=== PATIENT | female | born 1965 | race African-American/Black ===

== ENCOUNTER 2020-08-04 11:52 | Emergency (ER) | payer OTHER ==
[2020-08-04 11:58] VITALS: BP 164/82; TEMP 98; BMI 30.7
[2020-08-04] MEDS ORDERED: KETOROLAC TROMETHAMINE 60 MG/2 ML VIAL IM ONE (12:51)
[2020-08-04 13:47] VITALS: PULSE 82
== END 2020-08-04 14:06 | disposition home or self-care (01) ==
LOC: JERFT 11:52
PROC: 3E0233Z Introduction of Anti-inflammatory into Muscle, Percutaneous Approach (ICD-10-PCS; principal; 2020-08-04)
DX: M54.5 Low back pain (principal)
CPT/HCPCS: 72100-TC-FY; 73562-TC-LT-FY; 73562-TC-RT-FY; 99284-25

== ENCOUNTER 2021-06-24 16:37 | Inpatient (IN) | payer BC, OTHER ==
[2021-06-24] MEDS ORDERED: methylPREDNISolone NA SUCC 125 MG/2 ML VIAL IVPUSH ONE (18:01)
[2021-06-24] MEDS ORDERED: methylPREDNISolone NA SUCC 125 MG/2 ML VIAL ONE (18:13)
[2021-06-24] MEDS ORDERED: SODIUM CHLORIDE 0.9% 1000 ML INFUS.BAG IV ONE (18:14)
[2021-06-24] MEDS ORDERED: ACETAMINOPHEN 1000 MG/100 ML BAG IVPB ONE (18:14)
[2021-06-24] MEDS ORDERED: SODIUM CHLORIDE 0.9% 500 ML INFUS.BAG IV ONE (18:16)
[2021-06-24] MEDS ORDERED: ACETAMINOPHEN INJECTION 100 ML IVPB ONE (18:44)
[2021-06-24] MEDS ORDERED: ALBUTEROL SO4 2.5/IPRATROPIUM 0.5 INH SOL 3 ML VIAL.NEB. NEB ONE (19:27)
[2021-06-24] MEDS: ALBUTEROL SO4 2.5/IPRATROPIUM 0.5 INH SOL 3 ML VIAL.NEB. NEB SCH ×4 (19:30→22:19)
[2021-06-24 19:36] LABS: BASO % 0.8 % (0-2.0); EOS % 2.7 % (0-4.5); HEMATOCRIT 38.1 % (32.4-45.2); LYMPH % 16.9 % (8-40); MCH 31.4 pg (25.7-33.7); MEAN CELL VOLUME 92.3 fl (80-96); MEAN PLT VOLUME 8.6 fl (7.5-11.1); MONO % 11.5 % (3.8-10.2); NEUT % 68.1 % (42.8-82.8); PLATELET COUNT 336 10^3/uL (134-434); RBC 4.13 M/mm3 (3.60-5.2); RDW 14.2 % (11.6-15.6); WHITE BLOOD COUNT 8.8 K/mm3 (4.0-10.0)
[2021-06-24 19:56] LABS: ALBUMIN 3.7 g/dl (3.4-5.0); BLOOD UREA NITROGEN 22.3 mg/dL (7-18); CALCIUM 9.3 mg/dL (8.5-10.1)
[2021-06-24 20:01] LABS: BILIRUBIN,TOTAL 0.5 mg/dL (0.2-1); TOT PROT 7.1 g/dl (6.4-8.2)
[2021-06-24 21:14] LABS: N-TERMINAL BNP 243.1 pg/ml (5-125)
[2021-06-25 01:09] LABS: URINE APPEARANCE CLEAR; URINE BILIRUBIN NEGATIVE (NEGATIVE); URINE COLOR YELLOW; URINE GLUCOSE (UA) NEGATIVE (NEGATIVE); URINE KETONE NEGATIVE (NEGATIVE); URINE LEUK ESTERASE NEGATIVE (NEGATIVE); URINE NITRITE NEGATIVE (NEGATIVE); URINE PROTEIN NEGATIVE (NEGATIVE); URINE UROBILINOGEN 0.2 mg/dL (0.2-1.0)
[2021-06-25] MEDS ORDERED: methylPREDNISolone NA SUCC 40 MG/1 ML VIAL ONE (02:28)
[2021-06-25] MEDS: methylPREDNISolone NA SUCC 40 MG/1 ML VIAL IVPUSH SCH ×3 (02:43→17:25)
[2021-06-25 04:15] VITALS: BMI 28.0
[2021-06-25] MEDS: LISINOPRIL 10 MG TABLET PO SCH (06:41)
[2021-06-25 07:26] LABS: HEMATOCRIT 38.7 % (32.4-45.2); HEMOGLOBIN 13.4 GM/dL (10.7-15.3); MCH 31.9 pg (25.7-33.7); MCHC 34.8 g/dl (32.0-36.0); MEAN CELL VOLUME 91.7 fl (80-96); MEAN PLT VOLUME 8.1 fl (7.5-11.1); PLATELET COUNT 324 10^3/uL (134-434); RBC 4.21 M/mm3 (3.60-5.2); WHITE BLOOD COUNT 6.9 K/mm3 (4.0-10.0)
[2021-06-25 07:44] LABS: CALCIUM 9.4 mg/dL (8.5-10.1)
[2021-06-25 07:45] LABS: ALBUMIN 3.6 g/dl (3.4-5.0); MAGNESIUM 2.1 mg/dL (1.8-2.4)
[2021-06-25 07:48] LABS: CREATININE 0.9 mg/dL (0.55-1.3); PHOSPHOROUS 2.2 mg/dL (2.5-4.9)
[2021-06-25 07:49] LABS: BILIRUBIN,TOTAL 0.7 mg/dL (0.2-1)
[2021-06-25 07:50] LABS: TOT PROT 7.1 g/dl (6.4-8.2)
[2021-06-25 09:30] LABS: ANISOCYTOSIS 0; MACROCYTOSIS 0
[2021-06-25] MEDS ORDERED: DEXTROSE 5%-WATER - 50 ML IVPB ONE (09:45)
[2021-06-25] MEDS ORDERED: cefTRIAXone SODIUM 1 GM VIAL ONE (09:45)
[2021-06-25] MEDS: ENOXAPARIN NA (PORCINE) 40 MG/0.4 ML DISP.SYRIN SQ SCH (09:51)
[2021-06-25] MEDS: CEFTRIAXONE 1 GM in DEXTROSE 5%-WATER - 50 ML IVPB SCH (09:54)
[2021-06-25] MEDS: AZITHROMYCIN IVPB 250 MG/125 ML BAG IVPB SCH (09:54)
[2021-06-25] MEDS ORDERED: HYDROCHLOROTHIAZIDE 12.5 MG CAPSULE (FP) PO SCH (10:00)
[2021-06-25] MEDS ORDERED: PATIENT'S OWN MEDICATION (NON-FORMULARY) (Lisinopril/Hydrochlorothiazide [Lisinopril-Hctz PO SCH (10:00)
[2021-06-26] MEDS: methylPREDNISolone NA SUCC 40 MG/1 ML VIAL IVPUSH SCH ×2 (01:38→09:47)
[2021-06-26] MEDS: ALBUTEROL SO4 2.5/IPRATROPIUM 0.5 INH SOL 3 ML VIAL.NEB. NEB PRN (07:35)
[2021-06-26 07:38] LABS: ALBUMIN 3.6 g/dl (3.4-5.0); BLOOD UREA NITROGEN 23.3 mg/dL (7-18); CALCIUM 9.9 mg/dL (8.5-10.1); MAGNESIUM 2.5 mg/dL (1.8-2.4)
[2021-06-26 07:40] LABS: CREATININE 0.9 mg/dL (0.55-1.3)
[2021-06-26 07:41] LABS: HEMATOCRIT 39.1 % (32.4-45.2); HEMOGLOBIN 13.1 GM/dL (10.7-15.3); MCH 30.9 pg (25.7-33.7); MCHC 33.5 g/dl (32.0-36.0); MEAN CELL VOLUME 92.4 fl (80-96); MEAN PLT VOLUME 8.7 fl (7.5-11.1); PLATELET COUNT 379 10^3/uL (134-434); RBC 4.23 M/mm3 (3.60-5.2); RDW 13.9 % (11.6-15.6); WHITE BLOOD COUNT 16.7 K/mm3 (4.0-10.0)
[2021-06-26 07:42] LABS: BILIRUBIN,TOTAL 0.5 mg/dL (0.2-1)
[2021-06-26 09:15] LABS: ANISOCYTOSIS 0; MACROCYTOSIS 1+
[2021-06-26] MEDS ORDERED: DEXTROSE 5%-WATER - 50 ML IVPB ONE (09:19)
[2021-06-26] MEDS ORDERED: cefTRIAXone SODIUM 1 GM VIAL ONE (09:19)
[2021-06-26] MEDS: LISINOPRIL 10 MG TABLET PO SCH (09:47)
[2021-06-26] MEDS: CEFTRIAXONE 1 GM in DEXTROSE 5%-WATER - 50 ML IVPB SCH (09:47)
[2021-06-26 10:14] LABS: INR 1.2 (0.83-1.09); PROTHROMBIN TIME (PATIENT) 13.8 SEC (9.7-13.0)
[2021-06-26] MEDS ORDERED: LABETALOL HCL 5 MG/1 ML (100MG/20 ML VIAL) IVPUSH ONE ×2 (12:50→13:08)
[2021-06-26] MEDS ORDERED: SODIUM CHLORIDE 500 ML IV SCH (14:00)
[2021-06-26] MEDS: AZITHROMYCIN IVPB 250 MG/125 ML BAG IVPB SCH (14:17)
[2021-06-26] MEDS ORDERED: ACETAMINOPHEN 325 MG TABLET (FP) PO ONE (21:34)
[2021-06-26] MEDS ORDERED: methylPREDNISolone NA SUCC 40 MG/1 ML VIAL IVPUSH SCH (22:00)
[2021-06-27] MEDS: ALBUTEROL SO4 2.5/IPRATROPIUM 0.5 INH SOL 3 ML VIAL.NEB. NEB PRN (07:27)
[2021-06-27] MEDS ORDERED: ACETAMINOPHEN 1000 MG/100 ML BAG IVPB PRN (07:29)
[2021-06-27 07:56] LABS: BASO % 0.1 % (0-2.0); HEMATOCRIT 37.3 % (32.4-45.2); HEMOGLOBIN 12.6 GM/dL (10.7-15.3); LYMPH % 6.6 % (8-40); MCH 31.2 pg (25.7-33.7); MCHC 33.7 g/dl (32.0-36.0); MEAN CELL VOLUME 92.7 fl (80-96); MEAN PLT VOLUME 8.4 fl (7.5-11.1); MONO % 3.9 % (3.8-10.2); NEUT % 89.4 % (42.8-82.8); PLATELET COUNT 340 10^3/uL (134-434); RBC 4.03 M/mm3 (3.60-5.2); RDW 14.4 % (11.6-15.6); WHITE BLOOD COUNT 13.1 K/mm3 (4.0-10.0)
[2021-06-27 08:08] LABS: BLOOD UREA NITROGEN 31.2 mg/dL (7-18); CALCIUM 9.6 mg/dL (8.5-10.1)
[2021-06-27 08:09] LABS: ALBUMIN 3.6 g/dl (3.4-5.0); MAGNESIUM 2.6 mg/dL (1.8-2.4)
[2021-06-27 08:12] LABS: BILIRUBIN,TOTAL 0.4 mg/dL (0.2-1); TOT PROT 6.6 g/dl (6.4-8.2)
[2021-06-27 08:15] LABS: CREATININE 0.9 mg/dL (0.55-1.3)
[2021-06-27] MEDS ORDERED: cefTRIAXone SODIUM 1 GM VIAL ONE (09:28)
[2021-06-27] MEDS ORDERED: DEXTROSE 5%-WATER - 50 ML IVPB ONE (09:28)
[2021-06-27] MEDS ORDERED: methylPREDNISolone NA SUCC 40 MG/1 ML VIAL IVPUSH SCH (10:00)
[2021-06-27] MEDS: CEFTRIAXONE 1 GM in DEXTROSE 5%-WATER - 50 ML IVPB SCH (10:02)
[2021-06-27] MEDS: LISINOPRIL 10 MG TABLET PO SCH (10:03)
[2021-06-27] MEDS: AZITHROMYCIN IVPB 250 MG/125 ML BAG IVPB SCH (12:06)
[2021-06-28] MEDS ORDERED: ACETAMINOPHEN 325 MG TABLET (FP) PO ONE (01:22)
[2021-06-28 06:57] LABS: BASO % 0.1 % (0-2.0); EOS % 0.2 % (0-4.5); HEMATOCRIT 36.5 % (32.4-45.2); HEMOGLOBIN 12.6 GM/dL (10.7-15.3); LYMPH % 26.2 % (8-40); MCH 31.8 pg (25.7-33.7); MCHC 34.4 g/dl (32.0-36.0); MEAN CELL VOLUME 92.4 fl (80-96); MEAN PLT VOLUME 8.1 fl (7.5-11.1); MONO % 13.6 % (3.8-10.2); NEUT % 59.9 % (42.8-82.8); PLATELET COUNT 306 10^3/uL (134-434); RBC 3.95 M/mm3 (3.60-5.2); WHITE BLOOD COUNT 8.9 K/mm3 (4.0-10.0)
[2021-06-28 07:10] LABS: CALCIUM 8.8 mg/dL (8.5-10.1)
[2021-06-28 07:12] LABS: ALBUMIN 2.9 g/dl (3.4-5.0); BLOOD UREA NITROGEN 27.5 mg/dL (7-18); MAGNESIUM 2.3 mg/dL (1.8-2.4)
[2021-06-28 07:14] LABS: CREATININE 0.8 mg/dL (0.55-1.3)
[2021-06-28 07:15] LABS: TOT PROT 5.9 g/dl (6.4-8.2)
[2021-06-28 07:16] LABS: BILIRUBIN,TOTAL 0.5 mg/dL (0.2-1)
[2021-06-28] MEDS: LISINOPRIL 10 MG TABLET PO SCH (09:50)
[2021-06-28] MEDS: ENOXAPARIN NA (PORCINE) 40 MG/0.4 ML DISP.SYRIN SQ SCH (09:53)
[2021-06-28] MEDS ORDERED: methylPREDNISolone NA SUCC 40 MG/1 ML VIAL IVPUSH SCH (10:00)
[2021-06-28] MEDS ORDERED: predniSONE 20 MG TABLET (UD) PO SCH (10:00)
[2021-06-28 10:52] VITALS: BP 115/80; PULSE 88; TEMP 98.2
== END 2021-06-28 16:35 | disposition home or self-care (01) | DRG 180 ==
LOC: JER 16:37 → JERBED 22:17 → J4W 06-25 04:10
PROVIDERS: ADMIT Hospitalist; ATTEND Nurse Practitioner Acute Care
PROC: 0BBF3ZX Excision of Right Lower Lung Lobe, Percutaneous Approach, Diagnostic (ICD-10-PCS; principal; 2021-06-26)
DX: C34.31 Malignant neoplasm of lower lobe, right bronchus or lung (principal); J96.01 Acute respiratory failure with hypoxia; J18.9 Pneumonia, unspecified organism; J44.1 Chronic obstructive pulmonary disease with (acute) exacerbation; J94.8 Other specified pleural conditions; J95.811 Postprocedural pneumothorax; K76.89 Other specified diseases of liver; K80.20 Calculus of gallbladder without cholecystitis without obstruction; I10 Essential (primary) hypertension; F41.9 Anxiety disorder, unspecified; Z86.16 Personal history of COVID-19; Z85.3 Personal history of malignant neoplasm of breast; Y83.8 Other surgical procedures as the cause of abnormal reaction of the patient, or of later complication, without mention of misadventure at the time of the procedure
CPT/HCPCS: 32408; 36415; 71045-TC-FY; 71046-TC-FY; 71275-TC; 80053; 81003; 83036; 83735; 83880; 84100; 84484; 85025; 85610; 87070; 87075; 87086; 87102; 87116; 87205; 87206; 87210; 87899; 88305-TC; 93005; 93010; 94640; 99285-25; C9803-CS; Q9967; U0003; U0005

== ENCOUNTER 2021-08-21 13:41 | Emergency (ER) | payer BC ==
[2021-08-21 14:56] VITALS: BP 154/93; PULSE 104; TEMP 98.6; BMI 28.1
[2021-08-21] MEDS ORDERED: SODIUM CHLORIDE 1,000 ML IV STA (15:05)
[2021-08-21] MEDS ORDERED: ACETAMINOPHEN 1000 MG/100 ML BAG IVPB ONE (15:23)
[2021-08-21] MEDS ORDERED: ACETAMINOPHEN INJECTION 100 ML IVPB ONE (16:20)
[2021-08-21 16:46] LABS: PH,URINE 6.5 (5.0-8.0); URINE APPEARANCE CLEAR; URINE BILIRUBIN NEGATIVE (NEGATIVE); URINE COLOR YELLOW; URINE GLUCOSE (UA) NEGATIVE (NEGATIVE); URINE KETONE NEGATIVE (NEGATIVE); URINE LEUK ESTERASE NEGATIVE (NEGATIVE); URINE NITRITE NEGATIVE (NEGATIVE); URINE PROTEIN NEGATIVE (NEGATIVE); URINE UROBILINOGEN 0.2 mg/dL (0.2-1.0)
[2021-08-21 16:47] LABS: BASO % 0.9 % (0-2.0); EOS % 0.6 % (0-4.5); HEMATOCRIT 38.1 % (32.4-45.2); HEMOGLOBIN 12.9 GM/dL (10.7-15.3); MCH 31.5 pg (25.7-33.7); MCHC 33.8 g/dl (32.0-36.0); MEAN CELL VOLUME 93.2 fl (80-96); MEAN PLT VOLUME 8.3 fl (7.5-11.1); NEUT % 65.5 % (42.8-82.8); PLATELET COUNT 341 10^3/uL (134-434); RBC 4.09 M/mm3 (3.60-5.2); RDW 13.9 % (11.6-15.6)
[2021-08-21 16:51] LABS: HCG,QUALITATIVE URINE Negative
[2021-08-21 17:12] LABS: ALBUMIN 3.8 g/dl (3.4-5.0); BLOOD UREA NITROGEN 15.5 mg/dL (7-18); CALCIUM 9.6 mg/dL (8.5-10.1)
[2021-08-21 17:15] LABS: CREATININE 0.8 mg/dL (0.55-1.3)
[2021-08-21 17:16] LABS: BILIRUBIN,TOTAL 1.3 mg/dL (0.2-1); TOT PROT 6.8 g/dl (6.4-8.2)
== END 2021-08-21 20:23 | disposition home or self-care (01) ==
LOC: JER 13:41
PROC: 3E0333Z Introduction of Anti-inflammatory into Peripheral Vein, Percutaneous Approach (ICD-10-PCS; principal; 2021-08-21)
PROC: 3E0337Z Introduction of Electrolytic and Water Balance Substance into Peripheral Vein, Percutaneous Approach (ICD-10-PCS; 2021-08-21)
DX: J01.00 Acute maxillary sinusitis, unspecified (principal)
CPT/HCPCS: 36415; 71275-TC; 80053; 81003; 84703; 85025; 87086; 93005; 93010; 99285-25

== ENCOUNTER 2021-09-12 12:54 | Observation (INO) | payer BC ==
[2021-09-12] MEDS ORDERED: ACETAMINOPHEN 1000 MG/100 ML BAG IVPB ONE (15:07)
[2021-09-12] MEDS ORDERED: ACETAMINOPHEN INJECTION 100 ML IVPB ONE (15:43)
[2021-09-12 15:56] LABS: BASO % 0.3 % (0-2.0); EOS % 0.1 % (0-4.5); HEMATOCRIT 36.9 % (32.4-45.2); HEMOGLOBIN 12.6 GM/dL (10.7-15.3); MCH 31.1 pg (25.7-33.7); MCHC 34.2 g/dl (32.0-36.0); MEAN CELL VOLUME 90.9 fl (80-96); MONO % 1.2 % (3.8-10.2); NEUT % 90.4 % (42.8-82.8); PLATELET COUNT 402 10^3/uL (134-434); RBC 4.06 M/mm3 (3.60-5.2); RDW 13.9 % (11.6-15.6); WHITE BLOOD COUNT 5.8 K/mm3 (4.0-10.0)
[2021-09-12 16:22] LABS: ALBUMIN 3.8 g/dl (3.4-5.0); BLOOD UREA NITROGEN 18.7 mg/dL (7-18); CALCIUM 9.6 mg/dL (8.5-10.1)
[2021-09-12 16:25] LABS: CREATININE 0.9 mg/dL (0.55-1.3)
[2021-09-12 16:27] LABS: BILIRUBIN,TOTAL 0.8 mg/dL (0.2-1)
[2021-09-12 16:40] LABS: INR 1.07 (0.83-1.09); PROTHROMBIN TIME (PATIENT) 12.3 SEC (9.7-13.0)
[2021-09-12 16:42] LABS: ACTIVATED PTT 30.4 SECONDS (25.2-36.5)
[2021-09-12] MEDS ORDERED: morphine CARPU-JECT 4 MG/1 ML DISP.SYRIN IVPUSH ONE (18:09)
[2021-09-12] MEDS ORDERED: ASPIRIN 81 MG CHEWABLE TABLETS PO ONE (18:09)
[2021-09-12] MEDS ORDERED: morphine SULFATE 4 MG/ML VIAL ONE (18:57)
[2021-09-12] MEDS ORDERED: ASPIRIN 81 MG CHEWABLE TABLETS ONE (18:57)
[2021-09-12] MEDS ORDERED: ALBUTEROL SO4 2.5/IPRATROPIUM 0.5 INH SOL 3 ML VIAL.NEB. NEB PRN (19:55)
[2021-09-12] MEDS ORDERED: ALBUTEROL SO4 HFA INHALER IH PRN (19:55)
[2021-09-12] MEDS ORDERED: ONDANSETRON *ODT* 4 MG TABLET SL PRN (19:55)
[2021-09-12] MEDS ORDERED: ACETAMINOPHEN 325 MG TABLET (FP) PO PRN (21:49)
[2021-09-12] MEDS ORDERED: LIDOCAINE 5% TOPICAL PATCH ONE (22:58)
[2021-09-12] MEDS: BUDESONIDE/FORMETEROL FUMARATE 160/4.5 mcg INHALER IH SCH (23:01)
[2021-09-12] MEDS: LIDOCAINE 5% TOPICAL PATCH TP SCH (23:01)
[2021-09-13 00:19] VITALS: BMI 28.0
[2021-09-13 07:06] LABS: HEMATOCRIT 35.1 % (32.4-45.2); HEMOGLOBIN 12.1 GM/dL (10.7-15.3); MCH 31.2 pg (25.7-33.7); MCHC 34.3 g/dl (32.0-36.0); MEAN CELL VOLUME 90.9 fl (80-96); MEAN PLT VOLUME 8.5 fl (7.5-11.1); PLATELET COUNT 347 10^3/uL (134-434); RBC 3.86 M/mm3 (3.60-5.2); RDW 13.9 % (11.6-15.6); WHITE BLOOD COUNT 6.1 K/mm3 (4.0-10.0)
[2021-09-13 07:22] LABS: BLOOD UREA NITROGEN 23.7 mg/dL (7-18); CALCIUM 9.4 mg/dL (8.5-10.1)
[2021-09-13 07:26] LABS: CREATININE 0.8 mg/dL (0.55-1.3)
[2021-09-13] MEDS: BUDESONIDE/FORMETEROL FUMARATE 160/4.5 mcg INHALER IH SCH ×2 (09:16→21:52)
[2021-09-13] MEDS: LISINOPRIL 10 MG TABLET PO SCH (09:16)
[2021-09-13] MEDS: FAMOTIDINE 20 MG TABLET PO SCH (09:16)
[2021-09-13] MEDS: ENOXAPARIN NA (PORCINE) 40 MG/0.4 ML DISP.SYRIN SQ SCH (09:16)
[2021-09-13] MEDS: HYDROCHLOROTHIAZIDE 12.5 MG CAPSULE (FP) PO SCH (09:16)
[2021-09-13] MEDS: LIDOCAINE PATCH REMOVAL MC SCH (09:32)
[2021-09-13] MEDS ORDERED: PATIENT'S OWN MEDICATION (NON-FORMULARY) (Lisinopril/Hydrochlorothiazide [Lisinopril-Hctz PO SCH (10:00)
[2021-09-13] MEDS ORDERED: ACETAMINOPHEN 1000 MG/100 ML BAG IVPB ONE (11:30)
[2021-09-13] MEDS: oxyCODONE HCL 5 MG TABLET PO PRN (19:49)
[2021-09-13] MEDS: LIDOCAINE 5% TOPICAL PATCH TP SCH (21:56)
[2021-09-14] MEDS ORDERED: diphenhydrAMINE HCL 25 MG CAPSULE (FP) PO ONE (00:02)
[2021-09-14 07:14] LABS: BASO % 0.9 % (0-2.0); EOS % 0.5 % (0-4.5); HEMATOCRIT 34.2 % (32.4-45.2); LYMPH % 24.4 % (8-40); MCH 32.1 pg (25.7-33.7); MCHC 35.1 g/dl (32.0-36.0); MEAN CELL VOLUME 91.5 fl (80-96); MEAN PLT VOLUME 8.1 fl (7.5-11.1); MONO % 5.7 % (3.8-10.2); NEUT % 68.5 % (42.8-82.8); PLATELET COUNT 335 10^3/uL (134-434); RBC 3.74 M/mm3 (3.60-5.2); RDW 13.5 % (11.6-15.6)
[2021-09-14 07:36] LABS: ALBUMIN 3.4 g/dl (3.4-5.0); BLOOD UREA NITROGEN 17.1 mg/dL (7-18); MAGNESIUM 2.2 mg/dL (1.8-2.4)
[2021-09-14 07:40] LABS: CREATININE 0.8 mg/dL (0.55-1.3)
[2021-09-14 07:42] LABS: TOT PROT 6.2 g/dl (6.4-8.2)
[2021-09-14] MEDS: ENOXAPARIN NA (PORCINE) 40 MG/0.4 ML DISP.SYRIN SQ SCH (09:49)
[2021-09-14] MEDS: LISINOPRIL 10 MG TABLET PO SCH (09:49)
[2021-09-14] MEDS: HYDROCHLOROTHIAZIDE 12.5 MG CAPSULE (FP) PO SCH (09:49)
[2021-09-14] MEDS: BUDESONIDE/FORMETEROL FUMARATE 160/4.5 mcg INHALER IH SCH (09:49)
[2021-09-14] MEDS: FAMOTIDINE 20 MG TABLET PO SCH (09:49)
[2021-09-14] MEDS: LIDOCAINE PATCH REMOVAL MC SCH (09:50)
[2021-09-14] MEDS: oxyCODONE HCL 5 MG TABLET PO PRN (11:41)
[2021-09-14 14:59] VITALS: BP 100/63; PULSE 99; TEMP 98.5
== END 2021-09-14 18:37 | disposition home or self-care (01) ==
LOC: JER 12:54 → JERBED 18:19 → J4W 09-13 02:56
PROVIDERS: ADMIT Hospitalist; ATTEND Nurse Practitioner Family
PROC: 3E023GC Introduction of Other Therapeutic Substance into Muscle, Percutaneous Approach (ICD-10-PCS; principal; 2021-09-12)
PROC: 3E033NZ Introduction of Analgesics, Hypnotics, Sedatives into Peripheral Vein, Percutaneous Approach (ICD-10-PCS; 2021-09-12)
DX: R07.89 Other chest pain (principal); R00.2 Palpitations; J43.9 Emphysema, unspecified; J84.10 Pulmonary fibrosis, unspecified; Z85.3 Personal history of malignant neoplasm of breast; Z85.118 Personal history of other malignant neoplasm of bronchus and lung; I10 Essential (primary) hypertension; Z87.891 Personal history of nicotine dependence; R00.0 Tachycardia, unspecified; Z88.2 Allergy status to sulfonamides
CPT/HCPCS: 0241U-QW; 36415; 71045-TC-FY; 71101-TC-RT-FY; 71275-TC; 80048; 80053; 83735; 84484; 85025; 85027; 85610; 85730; 93005; 93010; 94010; 94761; 99285-25; G0378; Q9967

== ENCOUNTER 2021-12-09 18:35 | Emergency (ER) | payer BC ==
[2021-12-09 18:47] VITALS: TEMP 98; BMI 29.0
[2021-12-09] MEDS ORDERED: SODIUM CHLORIDE 0.9% 500 ML INFUS.BAG IV ONE (19:16)
[2021-12-09 20:20] LABS: BASO % 0.5 % (0-2.0); EOS % 0.4 % (0-4.5); HEMATOCRIT 34.8 % (32.4-45.2); HEMOGLOBIN 11.9 GM/dL (10.7-15.3); MCH 32.4 pg (25.7-33.7); MCHC 34.3 g/dl (32.0-36.0); MEAN CELL VOLUME 94.7 fl (80-96); MEAN PLT VOLUME 8.1 fl (7.5-11.1); MONO % 21.1 % (3.8-10.2); PLATELET COUNT 246 10^3/uL (134-434); RBC 3.68 M/mm3 (3.60-5.2); RDW 14.2 % (11.6-15.6)
[2021-12-09 20:44] LABS: ALBUMIN 3.8 g/dl (3.4-5.0); BLOOD UREA NITROGEN 32.2 mg/dL (7-18); CALCIUM 9.3 mg/dL (8.5-10.1)
[2021-12-09 20:47] LABS: CREATININE 1.6 mg/dL (0.55-1.3)
[2021-12-09 20:49] LABS: BILIRUBIN,TOTAL 0.9 mg/dL (0.2-1); TOT PROT 6.8 g/dl (6.4-8.2)
[2021-12-09 20:53] LABS: ANISOCYTOSIS 1+; MACROCYTOSIS 0
[2021-12-10] MEDS ORDERED: LACTATED RINGERS SOLUTION 1000 ML INFUS.BAG IV ONE (00:17)
[2021-12-10 00:25] VITALS: BP 101/62; PULSE 99; RESP 18
== END 2021-12-10 06:34 | disposition home or self-care (01) ==
LOC: JER 18:35
DX: U07.1 COVID-19 (principal); N17.9 Acute kidney failure, unspecified; C79.81 Secondary malignant neoplasm of breast
CPT/HCPCS: 36415; 71045-TC-FY; 80053; 84484; 85025; 93005; 93010; 99285-25; C9803-CS; U0003; U0005

== ENCOUNTER 2023-12-24 16:38 | Inpatient (IN) | payer BC ==
[2023-12-24 18:28] LABS: BASO % 0.8 % (0-2.0); EOS % 0.1 % (0-4.5); HEMATOCRIT 37.1 % (32.4-45.2); HEMOGLOBIN 12.3 GM/dL (10.7-15.3); LYMPH % 7.9 % (8-40); MCH 31.5 pg (25.7-33.7); MCHC 33.2 g/dl (32.0-36.0); MEAN CELL VOLUME 94.9 fl (80-96); MEAN PLT VOLUME 8.4 fl (7.5-11.1); MONO % 11.6 % (3.8-10.2); NEUT % 79.6 % (42.8-82.8); PLATELET COUNT 297 10^3/uL (134-434); RBC 3.91 M/mm3 (3.60-5.2); RDW 14.2 % (11.6-15.6)
[2023-12-24 18:41] LABS: POTASSIUM 4.1 mmol/L (3.5-5.1)
[2023-12-24 18:45] LABS: BLOOD UREA NITROGEN 9.8 mg/dL (7-18); CALCIUM 9.2 mg/dL (8.5-10.1)
[2023-12-24 18:49] LABS: CREATININE 1.8 mg/dL (0.55-1.3)
[2023-12-24 18:51] LABS: BILIRUBIN,TOTAL 0.8 mg/dL (0.2-1); TOT PROT 6.9 g/dl (6.4-8.2)
[2023-12-24 18:53] LABS: N-TERMINAL BNP 1622.2 pg/ml (5-125)
[2023-12-24] MEDS ORDERED: KETOROLAC TROMETHAMINE 15 MG/ML VIAL ONE (19:34)
[2023-12-24] MEDS: KETOROLAC TROMETHAMINE 15 MG/ML VIAL IVPUSH ONE (19:58)
[2023-12-25 01:15] LABS: INR 1.13 (0.83-1.09)
[2023-12-25] MEDS: ONDANSETRON 4 MG/2 ML VIAL IVPUSH ONE (05:32)
[2023-12-25] MEDS: HEPARIN NA (PORCINE) 5,000 UNITS/ML 1ML VIAL SQ SCH (06:06)
[2023-12-25 08:21] LABS: HEMATOCRIT 36.8 % (32.4-45.2); HEMOGLOBIN 11.9 GM/dL (10.7-15.3); MCH 31.1 pg (25.7-33.7); MCHC 32.2 g/dl (32.0-36.0); MEAN CELL VOLUME 96.6 fl (80-96); MEAN PLT VOLUME 8.7 fl (7.5-11.1); PLATELET COUNT 283 10^3/uL (134-434); POTASSIUM 3.7 mmol/L (3.5-5.1); RBC 3.81 M/mm3 (3.60-5.2); RDW 14.1 % (11.6-15.6); WHITE BLOOD COUNT 5.7 K/mm3 (4.0-10.0)
[2023-12-25 08:23] LABS: ALBUMIN 3.1 g/dl (3.4-5.0); BLOOD UREA NITROGEN 13.5 mg/dL (7-18); CALCIUM 9.2 mg/dL (8.5-10.1); MAGNESIUM 2.1 mg/dL (1.8-2.4)
[2023-12-25 08:26] LABS: PHOSPHOROUS 4.1 mg/dL (2.5-4.9)
[2023-12-25 08:28] LABS: BILIRUBIN,TOTAL 0.4 mg/dL (0.2-1); CREATININE 2.9 mg/dL (0.55-1.3); TOT PROT 6.9 g/dl (6.4-8.2)
[2023-12-25] MEDS: FOLIC ACID 1 MG TABLET (FP) PO SCH (09:52)
[2023-12-25] MEDS: FUROSEMIDE 40 MG/4 ML INJECTABLE VIAL IVPUSH ONE (09:52)
[2023-12-25] MEDS: ASPIRIN COATED 81 MG TABLET.EC PO SCH (09:52)
[2023-12-25] MEDS: FAMOTIDINE 20 MG TABLET PO SCH (09:53)
[2023-12-25] MEDS: FUROSEMIDE 40 MG/4 ML INJECTABLE VIAL IVPUSH SCH (14:54)
[2023-12-25] MEDS: dilTIAZem HCL 30 MG TABLET PO SCH (17:53)
[2023-12-26 08:59] LABS: EOS % 0.9 % (0-4.5); HEMATOCRIT 33.6 % (32.4-45.2); LYMPH % 19.2 % (8-40); MCH 31.7 pg (25.7-33.7); MCHC 32.8 g/dl (32.0-36.0); MEAN CELL VOLUME 96.6 fl (80-96); MEAN PLT VOLUME 8.2 fl (7.5-11.1); MONO % 13.6 % (3.8-10.2); NEUT % 65.3 % (42.8-82.8); PLATELET COUNT 267 10^3/uL (134-434); RBC 3.47 M/mm3 (3.60-5.2); RDW 14.2 % (11.6-15.6); WHITE BLOOD COUNT 6.2 K/mm3 (4.0-10.0)
[2023-12-26 09:29] LABS: POTASSIUM 4.2 mmol/L (3.5-5.1)
[2023-12-26 09:32] LABS: ALBUMIN 2.9 g/dl (3.4-5.0); BLOOD UREA NITROGEN 24.5 mg/dL (7-18); CALCIUM 9.2 mg/dL (8.5-10.1)
[2023-12-26 09:37] LABS: BILIRUBIN,TOTAL 0.4 mg/dL (0.2-1); CREATININE 4.2 mg/dL (0.55-1.3); N-TERMINAL BNP 1788.2 pg/ml (5-125); TOT PROT 6.7 g/dl (6.4-8.2)
[2023-12-26] MEDS: oxyCODONE HCL 5 MG TABLET PO PRN (10:04)
[2023-12-27 06:32] LABS: POTASSIUM 4.3 mmol/L (3.5-5.1)
[2023-12-27 06:35] LABS: ALBUMIN 2.9 g/dl (3.4-5.0); BLOOD UREA NITROGEN 34.7 mg/dL (7-18); CALCIUM 9.2 mg/dL (8.5-10.1)
[2023-12-27 06:39] LABS: CREATININE 4.9 mg/dL (0.55-1.3)
[2023-12-27 06:40] LABS: BILIRUBIN,TOTAL 0.4 mg/dL (0.2-1); TOT PROT 6.5 g/dl (6.4-8.2)
[2023-12-27] MEDS ORDERED: MIDAZOLAM HCL 2 MG/2 ML SINGLE DOSE VIAL ONE (13:32)
[2023-12-27] MEDS ORDERED: FENTANYL CITRATE/PF 50 MCG/ML VIAL ONE (13:32)
[2023-12-27] MEDS: MIDAZOLAM HCL 2 MG/2 ML SINGLE DOSE VIAL IVPUSH ONE (14:00)
[2023-12-27] MEDS: FENTANYL CITRATE/PF 50 MCG/ML VIAL IVPUSH ONE (14:00)
[2023-12-27] MEDS ORDERED: SODIUM CHLORIDE 250 ML IV PRN (15:31)
[2023-12-27 15:59] LABS: BF WBC & OTHER NUCLEATED CELLS 320 /mm3
[2023-12-27 16:03] LABS: BODY FLUID MACROPHAGES 58 %; BODY FLUID MESOTHELIAL 2 %
[2023-12-27 18:30] LABS: HEMATOCRIT 27.9 % (32.4-45.2); HEMOGLOBIN 9.1 GM/dL (10.7-15.3); MCH 31.2 pg (25.7-33.7); MCHC 32.7 g/dl (32.0-36.0); MEAN CELL VOLUME 95.4 fl (80-96); MEAN PLT VOLUME 8.5 fl (7.5-11.1); PLATELET COUNT 225 10^3/uL (134-434); RBC 2.93 M/mm3 (3.60-5.2); RDW 13.8 % (11.6-15.6); WHITE BLOOD COUNT 6.8 K/mm3 (4.0-10.0)
[2023-12-27] MEDS: ALBUMIN HUMAN 25% 12.5 GM/50 ML VIAL IV SCH (19:32)
[2023-12-28 08:08] LABS: HEMATOCRIT 31.3 % (32.4-45.2); HEMOGLOBIN 10.1 GM/dL (10.7-15.3); MCH 31.1 pg (25.7-33.7); MCHC 32.3 g/dl (32.0-36.0); MEAN CELL VOLUME 96.2 fl (80-96); MEAN PLT VOLUME 8.7 fl (7.5-11.1); PLATELET COUNT 233 10^3/uL (134-434); RBC 3.25 M/mm3 (3.60-5.2); RDW 13.8 % (11.6-15.6); WHITE BLOOD COUNT 7.9 K/mm3 (4.0-10.0)
[2023-12-28 08:23] LABS: POTASSIUM 4.1 mmol/L (3.5-5.1)
[2023-12-28 08:28] LABS: ALBUMIN 2.8 g/dl (3.4-5.0); BLOOD UREA NITROGEN 23.3 mg/dL (7-18)
[2023-12-28 08:31] LABS: CREATININE 4.1 mg/dL (0.55-1.3); PHOSPHOROUS 4.5 mg/dL (2.5-4.9)
[2023-12-28 08:33] LABS: BILIRUBIN,TOTAL 0.6 mg/dL (0.2-1); TOT PROT 6.4 g/dl (6.4-8.2)
[2023-12-28] MEDS: dilTIAZem HCL 30 MG TABLET PO SCH (12:22)
[2023-12-28] MEDS ORDERED: SODIUM CHLORIDE 250 ML IV PRN (15:03)
[2023-12-28 15:10] LABS: BODY FLUID ALBUMIN 2.7 g/dL (Not Estab.)
[2023-12-29] MEDS: ACETAMINOPHEN 325 MG TABLET (FP) PO PRN (01:24)
[2023-12-29] MEDS: oxyCODONE HCL 5 MG TABLET PO ONE (02:32)
[2023-12-29] MEDS ORDERED: LIDOCAINE 4% PATCH TP SCH (10:00)
[2023-12-29] MEDS: LIDOCAINE 5% TOPICAL PATCH TP SCH (10:54)
[2023-12-29] MEDS: oxyCODONE HCL 5 MG TABLET PO PRN (14:30)
[2023-12-29] MEDS: FUROSEMIDE 40 MG/4 ML INJECTABLE VIAL IVPUSH ONE (14:30)
[2023-12-29] MEDS: morphine SULFATE 4 MG/ML VIAL IVPUSH ONE (18:45)
[2023-12-29] MEDS: ACETAMINOPHEN WITH CODEINE 300MG/30MG TABLET PO PRN (18:47)
[2023-12-29] MEDS: LIDOCAINE PATCH REMOVAL MC SCH (21:25)
[2023-12-29] MEDS ORDERED: LIDOCAINE PATCH REMOVAL MC SCH (22:00)
[2023-12-29] MEDS: NAPROXEN 250 MG TABLET PO SCH (23:01)
[2023-12-30] MEDS ORDERED: LIDOCAINE HCL 1%, 10 MG/ML (20ML VIAL) ONE (07:46)
[2023-12-30] MEDS ORDERED: MIDAZOLAM HCL 2 MG/2 ML SINGLE DOSE VIAL ONE ×2 (08:23→08:54)
[2023-12-30] MEDS ORDERED: ceFAZolin SODIUM 1 GM VIAL ONE (08:56)
[2023-12-30] MEDS ORDERED: ONDANSETRON 4 MG/2 ML VIAL ONE (09:00)
[2023-12-30] MEDS: LIDOCAINE HCL 1%, 10 MG/ML (20ML VIAL) INF ONE (09:08)
[2023-12-30] MEDS ORDERED: SODIUM CHLORIDE 250 ML IV PRN ×3 (09:54→13:09)
[2023-12-30] MEDS ORDERED: HEPARIN NA (PORCINE) 5,000 UNITS/ML 1ML VIAL IVPUSH SCH (11:15)
[2023-12-30 12:39] LABS: HEMOGLOBIN 9.4 GM/dL (10.7-15.3); MCH 31.6 pg (25.7-33.7); MCHC 33.5 g/dl (32.0-36.0); MEAN CELL VOLUME 94.2 fl (80-96); PLATELET COUNT 253 10^3/uL (134-434); RBC 2.98 M/mm3 (3.60-5.2); WHITE BLOOD COUNT 6.2 K/mm3 (4.0-10.0)
[2023-12-30 12:54] LABS: POTASSIUM 4.4 mmol/L (3.5-5.1)
[2023-12-30 12:58] LABS: CALCIUM 9.4 mg/dL (8.5-10.1)
[2023-12-30 12:59] LABS: ALBUMIN 2.7 g/dl (3.4-5.0); BLOOD UREA NITROGEN 43.3 mg/dL (7-18)
[2023-12-30 13:02] LABS: CREATININE 5.7 mg/dL (0.55-1.3)
[2023-12-30 13:03] LABS: BILIRUBIN,TOTAL 0.5 mg/dL (0.2-1)
[2023-12-30 13:04] LABS: TOT PROT 5.9 g/dl (6.4-8.2)
[2023-12-30] MEDS ORDERED: FENTANYL PATCH WASTE TD PRN (15:12)
[2023-12-30] MEDS: HEPARIN NA (PORCINE) 5,000 UNITS/ML 1ML VIAL IVPUSH ONE (15:20)
[2023-12-30] MEDS: dilTIAZem HCL 30 MG TABLET PO SCH ×2 (15:45→18:54)
[2023-12-30] MEDS: fentaNYL 12mcg/hr PATCH.TD72 TD SCH (15:46)
[2023-12-30] MEDS: HEPARIN NA (PORCINE) 5,000 UNITS/ML 1ML VIAL IVPUSH SCH (15:55)
[2023-12-30] MEDS: oxyCODONE HCL 5 MG TABLET PO PRN (19:29)
[2023-12-30] MEDS: NAPROXEN 250 MG TABLET PO SCH (21:35)
[2023-12-30] MEDS: LIDOCAINE PATCH REMOVAL MC SCH (21:36)
[2023-12-31] MEDS: ACETAMINOPHEN WITH CODEINE 300MG/30MG TABLET PO PRN ×2 (02:34→09:48)
[2023-12-31 07:39] LABS: HEMATOCRIT 30.5 % (32.4-45.2); HEMOGLOBIN 9.9 GM/dL (10.7-15.3); MCH 30.8 pg (25.7-33.7); MCHC 32.3 g/dl (32.0-36.0); MEAN CELL VOLUME 95.3 fl (80-96); MEAN PLT VOLUME 8.3 fl (7.5-11.1); PLATELET COUNT 268 10^3/uL (134-434); RDW 13.8 % (11.6-15.6); WHITE BLOOD COUNT 6.4 K/mm3 (4.0-10.0)
[2023-12-31 07:43] LABS: POTASSIUM 4.1 mmol/L (3.5-5.1)
[2023-12-31 07:53] LABS: BILIRUBIN,TOTAL 0.4 mg/dL (0.2-1); TOT PROT 5.6 g/dl (6.4-8.2)
[2023-12-31 07:54] LABS: ALBUMIN 2.5 g/dl (3.4-5.0); BLOOD UREA NITROGEN 19.4 mg/dL (7-18); CALCIUM 8.4 mg/dL (8.5-10.1); CREATININE 4.1 mg/dL (0.55-1.3)
[2023-12-31] MEDS: HEPARIN NA (PORCINE) 5,000 UNITS/ML 1ML VIAL IVPUSH SCH (07:55)
[2023-12-31] MEDS: HEPARIN NA (PORCINE) 5,000 UNITS/ML 1ML VIAL IVPUSH ONE ×2 (07:55)
[2023-12-31] MEDS: LIDOCAINE 5% TOPICAL PATCH TP SCH (09:50)
[2023-12-31] MEDS: FOLIC ACID 1 MG TABLET (FP) PO SCH (09:50)
[2023-12-31] MEDS: FAMOTIDINE 10 MG TABLET PO SCH (09:50)
[2023-12-31] MEDS ORDERED: SODIUM CHLORIDE 250 ML IV PRN (12:55)
[2023-12-31 14:23] VITALS: BMI 24.9
[2023-12-31] MEDS: HEPARIN NA (PORCINE) 5,000 UNITS/ML 1ML VIAL SQ SCH (15:15)
[2023-12-31] MEDS ORDERED: FENTANYL PATCH WASTE TD PRN (16:36)
[2023-12-31] MEDS: fentaNYL 12mcg/hr PATCH.TD72 TD SCH (17:07)
[2023-12-31] MEDS: dilTIAZem HCL 30 MG TABLET PO SCH (17:07)
[2024-01-01] MEDS: HEPARIN NA (PORCINE) 5,000 UNITS/ML 1ML VIAL IVPUSH ONE (08:50)
[2024-01-01] MEDS: HEPARIN NA (PORCINE) 5,000 UNITS/ML 1ML VIAL IVPUSH SCH (09:50)
[2024-01-01] MEDS: ALBUMIN HUMAN 25% 12.5 GM/50 ML VIAL IV SCH (10:00)
[2024-01-01 10:14] LABS: HEMATOCRIT 28.9 % (32.4-45.2); HEMOGLOBIN 9.7 GM/dL (10.7-15.3); MCH 31.2 pg (25.7-33.7); MCHC 33.5 g/dl (32.0-36.0); MEAN CELL VOLUME 93.2 fl (80-96); MEAN PLT VOLUME 8.2 fl (7.5-11.1); PLATELET COUNT 265 10^3/uL (134-434); RDW 13.8 % (11.6-15.6); WHITE BLOOD COUNT 5.9 K/mm3 (4.0-10.0)
[2024-01-01 10:31] LABS: POTASSIUM 3.8 mmol/L (3.5-5.1)
[2024-01-01 10:34] LABS: ALBUMIN 2.5 g/dl (3.4-5.0); CALCIUM 8.7 mg/dL (8.5-10.1)
[2024-01-01 10:35] LABS: BLOOD UREA NITROGEN 28.9 mg/dL (7-18)
[2024-01-01 10:37] LABS: CREATININE 5.5 mg/dL (0.55-1.3)
[2024-01-01 10:39] LABS: BILIRUBIN,TOTAL 0.5 mg/dL (0.2-1); TOT PROT 5.8 g/dl (6.4-8.2)
[2024-01-01] MEDS ORDERED: HEPARIN NA (PORCINE) 5,000 UNITS/ML 1ML VIAL IVPUSH ONE (12:55)
[2024-01-01] MEDS ORDERED: HEPARIN NA (PORCINE) 5,000 UNITS/ML 1ML VIAL IVPUSH SCH (13:00)
[2024-01-02 01:19] VITALS: RESP 18
[2024-01-02 09:22] VITALS: BP 88/56
[2024-01-02 09:24] VITALS: PULSE 77; TEMP 97.3
[2024-01-02] MEDS ORDERED: SODIUM CHLORIDE 250 ML IV PRN (11:38)
== END 2024-01-02 12:46 | disposition home or self-care (01) | DRG 180 ==
LOC: JER 16:38 → UNDOADMOB 21:03 → INTOOBSV 21:03 → OBSVTOIN 21:03 → JERBED 21:03 → OBSVTOIN 22:52 → JERBED 23:19 → J4S 23:19
PROVIDERS: ADMIT Internal Medicine; ATTEND Internal Medicine
PROC: 5A1D70Z Performance of Urinary Filtration, Intermittent, Less than 6 Hours Per Day (ICD-10-PCS; 2023-12-26)
PROC: 0W9930Z Drainage of Right Pleural Cavity with Drainage Device, Percutaneous Approach (ICD-10-PCS; principal; 2023-12-27)
PROC: 02H633Z Insertion of Infusion Device into Right Atrium, Percutaneous Approach (ICD-10-PCS; 2023-12-30)
PROC: B548ZZA Ultrasonography of Superior Vena Cava, Guidance (ICD-10-PCS; 2023-12-30)
DX: C78.01 Secondary malignant neoplasm of right lung (principal); J96.01 Acute respiratory failure with hypoxia; N18.6 End stage renal disease; N17.9 Acute kidney failure, unspecified; C34.90 Malignant neoplasm of unspecified part of unspecified bronchus or lung; I47.10 Supraventricular tachycardia, unspecified; I12.0 Hypertensive chronic kidney disease with stage 5 chronic kidney disease or end stage renal disease; J91.0 Malignant pleural effusion; I48.92 Unspecified atrial flutter; C79.31 Secondary malignant neoplasm of brain; T82.594A Other mechanical complication of infusion catheter, initial encounter; I10 Essential (primary) hypertension; Z99.2 Dependence on renal dialysis; J44.9 Chronic obstructive pulmonary disease, unspecified; C50.912 Malignant neoplasm of unspecified site of left female breast; E78.5 Hyperlipidemia, unspecified; Y83.8 Other surgical procedures as the cause of abnormal reaction of the patient, or of later complication, without mention of misadventure at the time of the procedure
CPT/HCPCS: 0241U-QW; 32550; 36415; 71045-TC-FY; 71046-TC-FY; 71250-TC; 76000-TC-FY; 80053; 82042; 82465; 82945; 83615; 83735; 83880; 83986; 84100; 84157; 84484; 85025; 85027; 85610; 85730; 86704; 86803; 87070; 87075; 87102; 87116; 87205; 87206; 87210; 87340; 87517; 88108; 88305-TC; 93005; 93010; 93306-TC; 94760; 94761; 97116-GP; 97161-GP; 99285-25; C1750; J1644; J2997; P9047

== ENCOUNTER 2024-02-03 12:21 | Inpatient (IN) | payer BC ==
[2024-02-03] MEDS ORDERED: ALBUTEROL SO4 2.5/IPRATROPIUM 0.5 INH SOL 3 ML VIAL.NEB. NEB ONE (14:10)
[2024-02-03] MEDS: ALBUTEROL SO4 2.5/IPRATROPIUM 0.5 INH SOL 3 ML VIAL.NEB. NEB SCH ×2 (14:12→20:00)
[2024-02-03 14:14] LABS: BASO % 1.1 % (0-2.0); EOS % 0.4 % (0-4.5); HEMOGLOBIN 10.1 GM/dL (10.7-15.3); LYMPH % 9.6 % (8-40); MCH 29.5 pg (25.7-33.7); MCHC 32.5 g/dl (32.0-36.0); MEAN CELL VOLUME 90.9 fl (80-96); MEAN PLT VOLUME 7.8 fl (7.5-11.1); MONO % 9.2 % (3.8-10.2); NEUT % 79.7 % (42.8-82.8); PLATELET COUNT 262 10^3/uL (134-434); RBC 3.41 M/mm3 (3.60-5.2); RDW 14.1 % (11.6-15.6); WHITE BLOOD COUNT 8.3 K/mm3 (4.0-10.0)
[2024-02-03 14:21] LABS: INR 1.13 (0.83-1.09)
[2024-02-03 14:23] LABS: ACTIVATED PTT 34.9 SECONDS (25.2-36.5)
[2024-02-03 14:38] LABS: POTASSIUM 3.8 mmol/L (3.5-5.1)
[2024-02-03 14:40] LABS: ALBUMIN 3.2 g/dl (3.4-5.0); BLOOD UREA NITROGEN 22.1 mg/dL (7-18); CALCIUM 9.6 mg/dL (8.5-10.1)
[2024-02-03 14:43] LABS: CREATININE 2.9 mg/dL (0.55-1.3)
[2024-02-03 14:45] LABS: TOT PROT 6.4 g/dl (6.4-8.2)
[2024-02-03] MEDS ORDERED: ACETAMINOPHEN INJECTION 100 ML ONE (15:06)
[2024-02-03] MEDS: ACETAMINOPHEN 1000 MG/100 ML BAG IVPB ONE (15:08)
[2024-02-03] MEDS ORDERED: SODIUM CHLORIDE 250 ML IV PRN (16:08)
[2024-02-03] MEDS ORDERED: predniSONE 20 MG TABLET (UD) ONE (18:19)
[2024-02-03] MEDS: predniSONE 20 MG TABLET (UD) PO SCH (18:20)
[2024-02-03 20:47] VITALS: BMI 24.2
[2024-02-03] MEDS: ATORVASTATIN CA 20 MG TABLET (FP) PO SCH (21:15)
[2024-02-03] MEDS: ACETAMINOPHEN WITH CODEINE 300MG/30MG TABLET PO PRN (21:15)
[2024-02-03] MEDS: HEPARIN NA (PORCINE) 5,000 UNITS/ML 1ML VIAL SQ SCH (21:16)
[2024-02-03] MEDS ORDERED: BUDESONIDE/FORMETEROL FUMARATE 160/4.5 mcg INHALER IH SCH (22:00)
[2024-02-03] MEDS: BUDESONIDE/FORMETEROL FUMARATE 160/4.5 mcg INHALER IH SCH (23:40)
[2024-02-04] MEDS: oxyCODONE HCL 5 MG TABLET PO PRN (01:48)
[2024-02-04] MEDS: ALBUTEROL SO4 2.5/IPRATROPIUM 0.5 INH SOL 3 ML VIAL.NEB. NEB ONE (03:02)
[2024-02-04] MEDS: HEPARIN NA (PORCINE) 5,000 UNITS/ML 1ML VIAL SQ SCH (07:09)
[2024-02-04] MEDS: ALBUTEROL SO4 2.5/IPRATROPIUM 0.5 INH SOL 3 ML VIAL.NEB. NEB SCH (08:37)
[2024-02-04 09:28] LABS: HEMATOCRIT 27.7 % (32.4-45.2); HEMOGLOBIN 9.3 GM/dL (10.7-15.3); MCH 30.1 pg (25.7-33.7); MCHC 33.7 g/dl (32.0-36.0); MEAN CELL VOLUME 89.4 fl (80-96); MEAN PLT VOLUME 7.8 fl (7.5-11.1); PLATELET COUNT 235 10^3/uL (134-434); RDW 14.1 % (11.6-15.6); WHITE BLOOD COUNT 4.1 K/mm3 (4.0-10.0)
[2024-02-04 09:48] LABS: POTASSIUM 3.8 mmol/L (3.5-5.1)
[2024-02-04 09:49] LABS: CALCIUM 9.3 mg/dL (8.5-10.1)
[2024-02-04 09:50] LABS: ALBUMIN 3.1 g/dl (3.4-5.0); BLOOD UREA NITROGEN 27.3 mg/dL (7-18)
[2024-02-04 09:53] LABS: CREATININE 2.8 mg/dL (0.55-1.3)
[2024-02-04 09:55] LABS: BILIRUBIN,TOTAL 0.7 mg/dL (0.2-1); TOT PROT 6.2 g/dl (6.4-8.2)
[2024-02-04] MEDS ORDERED: FOLIC ACID 1 MG TABLET (FP) PO SCH (10:00)
[2024-02-04] MEDS ORDERED: ASPIRIN COATED 81 MG TABLET.EC PO SCH (10:00)
[2024-02-04] MEDS ORDERED: PIPERACILLIN/TAZOB 3.375 GM 50 ML IVPB SCH (10:00)
[2024-02-04] MEDS ORDERED: SODIUM CHLORIDE 250 ML IV PRN (11:52)
[2024-02-04] MEDS: ALBUMIN HUMAN 25% 12.5 GM/50 ML VIAL IV SCH (12:33)
[2024-02-04] MEDS: FOLIC ACID 1 MG TABLET (FP) PO SCH (13:13)
[2024-02-04] MEDS: ASPIRIN COATED 81 MG TABLET.EC PO SCH (13:14)
[2024-02-04] MEDS: predniSONE 20 MG TABLET (UD) PO SCH (13:16)
[2024-02-04] MEDS: PIPERACILLIN/TAZOB 2.25 GM 2.25 GM/50 ML BAG IVPB SCH ×2 (13:16→19:12)
[2024-02-04] MEDS: BUDESONIDE/FORMETEROL FUMARATE 160/4.5 mcg INHALER IH SCH (13:23)
[2024-02-04] MEDS ORDERED: ALBUMIN HUMAN 25% 12.5 GM/50 ML VIAL IV SCH (16:15)
[2024-02-04] MEDS: VANCOMYCIN/WATER FOR INJ (PEG) 1,000 MG/200 ML BAG IVPB ONE (16:54)
[2024-02-04] MEDS ORDERED: PIPERACILLIN/TAZOB 3.375 GM 3.375 GM in DEXTROSE 5%-WATER - 50 ML IVPB SCH (18:00)
[2024-02-04] MEDS ORDERED: PIPERACILLIN/TAZOB 2.25 GM 2.25 GM/50 ML BAG IVPB SCH (18:00)
[2024-02-04] MEDS: ATORVASTATIN CA 20 MG TABLET (FP) PO SCH (21:26)
[2024-02-05] MEDS: ACETAMINOPHEN WITH CODEINE 300MG/30MG TABLET PO PRN (02:05)
[2024-02-05 09:19] LABS: HEMOGLOBIN 9.1 GM/dL (10.7-15.3); MCH 30.4 pg (25.7-33.7); MCHC 33.6 g/dl (32.0-36.0); MEAN CELL VOLUME 90.4 fl (80-96); MEAN PLT VOLUME 8.2 fl (7.5-11.1); PLATELET COUNT 278 10^3/uL (134-434); RBC 2.99 M/mm3 (3.60-5.2); RDW 13.7 % (11.6-15.6); WHITE BLOOD COUNT 5.9 K/mm3 (4.0-10.0)
[2024-02-05 09:31] LABS: POTASSIUM 4.2 mmol/L (3.5-5.1)
[2024-02-05 09:47] LABS: ALBUMIN 3.2 g/dl (3.4-5.0); CALCIUM 9.6 mg/dL (8.5-10.1); MAGNESIUM 1.8 mg/dL (1.8-2.4)
[2024-02-05 09:49] LABS: CREATININE 3.1 mg/dL (0.55-1.3)
[2024-02-05 09:50] LABS: PHOSPHOROUS 3.5 mg/dL (2.5-4.9)
[2024-02-05 09:51] LABS: BILIRUBIN,TOTAL 0.6 mg/dL (0.2-1); TOT PROT 6.5 g/dl (6.4-8.2)
[2024-02-05] MEDS: BENZONATATE 200 MG CAPSULE PO SCH (17:44)
[2024-02-06] MEDS: ACETAMINOPHEN 325 MG TABLET (FP) PO PRN (09:59)
[2024-02-07 07:30] LABS: HEMOGLOBIN 9.3 GM/dL (10.7-15.3); MCH 30.6 pg (25.7-33.7); MCHC 34.3 g/dl (32.0-36.0); MEAN CELL VOLUME 89.1 fl (80-96); MEAN PLT VOLUME 8.2 fl (7.5-11.1); PLATELET COUNT 264 10^3/uL (134-434); RBC 3.03 M/mm3 (3.60-5.2); RDW 13.9 % (11.6-15.6)
[2024-02-07 07:39] LABS: POTASSIUM 4.1 mmol/L (3.5-5.1)
[2024-02-07 07:49] LABS: ALBUMIN 3.2 g/dl (3.4-5.0); MAGNESIUM 1.7 mg/dL (1.8-2.4)
[2024-02-07 07:53] LABS: CREATININE 3.6 mg/dL (0.55-1.3); PHOSPHOROUS 3.9 mg/dL (2.5-4.9)
[2024-02-07 07:55] LABS: BILIRUBIN,TOTAL 0.4 mg/dL (0.2-1); TOT PROT 6.3 g/dl (6.4-8.2)
[2024-02-07 08:04] LABS: BLOOD UREA NITROGEN 59.9 mg/dL (7-18)
[2024-02-07] MEDS ORDERED: SODIUM CHLORIDE 250 ML IV PRN (10:25)
[2024-02-07 10:37] LABS: ANISOCYTOSIS 1+; MACROCYTOSIS 1+
[2024-02-07] MEDS: ALBUMIN HUMAN 25% 12.5 GM/50 ML VIAL IV SCH (11:55)
[2024-02-07] MEDS: ACETAMINOPHEN 1000 MG/100 ML BAG IVPB ONE (12:31)
[2024-02-07] MEDS ORDERED: oxyCODONE HCL 5 MG TABLET PO PRN (12:41)
[2024-02-07] MEDS: oxyCODONE HCL 5 MG TABLET PO PRN (13:10)
[2024-02-07] MEDS: oxyCODONE HCL 5 MG TABLET PO ONE (13:11)
[2024-02-07] MEDS: MAGNESIUM 2GM/50ML STERILE WATER IVPB IVPB ONE (16:51)
[2024-02-08 07:10] LABS: HEMATOCRIT 28.8 % (32.4-45.2); HEMOGLOBIN 9.7 GM/dL (10.7-15.3); MCH 29.9 pg (25.7-33.7); MCHC 33.5 g/dl (32.0-36.0); MEAN CELL VOLUME 89.1 fl (80-96); MEAN PLT VOLUME 8.1 fl (7.5-11.1); PLATELET COUNT 289 10^3/uL (134-434); RBC 3.24 M/mm3 (3.60-5.2); WHITE BLOOD COUNT 7.2 K/mm3 (4.0-10.0)
[2024-02-08 07:29] LABS: POTASSIUM 3.9 mmol/L (3.5-5.1)
[2024-02-08 07:38] LABS: ALBUMIN 3.5 g/dl (3.4-5.0); CALCIUM 9.4 mg/dL (8.5-10.1)
[2024-02-08 07:40] LABS: MAGNESIUM 2.5 mg/dL (1.8-2.4)
[2024-02-08 07:42] LABS: PHOSPHOROUS 3.6 mg/dL (2.5-4.9)
[2024-02-08 07:43] LABS: BILIRUBIN,TOTAL 0.4 mg/dL (0.2-1); TOT PROT 6.9 g/dl (6.4-8.2)
[2024-02-08 09:39] LABS: ANISOCYTOSIS 3+; MACROCYTOSIS 0
[2024-02-09 06:52] LABS: HEMATOCRIT 28.1 % (32.4-45.2); HEMOGLOBIN 9.1 GM/dL (10.7-15.3); MCH 29.3 pg (25.7-33.7); MCHC 32.5 g/dl (32.0-36.0); MEAN CELL VOLUME 90.2 fl (80-96); PLATELET COUNT 270 10^3/uL (134-434); RBC 3.11 M/mm3 (3.60-5.2); RDW 14.1 % (11.6-15.6); WHITE BLOOD COUNT 8.2 K/mm3 (4.0-10.0)
[2024-02-09 07:09] LABS: ALBUMIN 3.1 g/dl (3.4-5.0); CALCIUM 9.1 mg/dL (8.5-10.1)
[2024-02-09 07:10] LABS: BLOOD UREA NITROGEN 57.9 mg/dL (7-18); MAGNESIUM 2.2 mg/dL (1.8-2.4)
[2024-02-09 07:13] LABS: CREATININE 3.4 mg/dL (0.55-1.3); PHOSPHOROUS 4.3 mg/dL (2.5-4.9)
[2024-02-09 07:14] LABS: BILIRUBIN,TOTAL 0.4 mg/dL (0.2-1)
[2024-02-09] MEDS: ALBUMIN HUMAN 25% 12.5 GM/50 ML VIAL IV SCH (09:00)
[2024-02-09] MEDS ORDERED: SODIUM CHLORIDE 250 ML IV PRN (09:01)
[2024-02-09 10:09] LABS: ANISOCYTOSIS 1+; MACROCYTOSIS 0
[2024-02-09] MEDS: ALBUTEROL SO4 2.5/IPRATROPIUM 0.5 INH SOL 3 ML VIAL.NEB. NEB PRN (12:09)
[2024-02-09] MEDS: AMOX TR/POT CLAV 250MG/125MG TABLETS PO SCH (17:07)
[2024-02-10 08:16] LABS: HEMATOCRIT 29.8 % (32.4-45.2); HEMOGLOBIN 9.6 GM/dL (10.7-15.3); MCHC 32.2 g/dl (32.0-36.0); MEAN CELL VOLUME 90.1 fl (80-96); MEAN PLT VOLUME 8.2 fl (7.5-11.1); PLATELET COUNT 329 10^3/uL (134-434); RBC 3.31 M/mm3 (3.60-5.2); RDW 14.1 % (11.6-15.6); WHITE BLOOD COUNT 11.2 K/mm3 (4.0-10.0)
[2024-02-10 08:28] LABS: POTASSIUM 3.5 mmol/L (3.5-5.1)
[2024-02-10 08:32] LABS: ALBUMIN 3.6 g/dl (3.4-5.0); CALCIUM 9.6 mg/dL (8.5-10.1)
[2024-02-10 08:33] LABS: BLOOD UREA NITROGEN 39.7 mg/dL (7-18)
[2024-02-10 08:36] LABS: CREATININE 3.1 mg/dL (0.55-1.3); PHOSPHOROUS 4.9 mg/dL (2.5-4.9)
[2024-02-10 08:37] LABS: BILIRUBIN,TOTAL 0.6 mg/dL (0.2-1); TOT PROT 6.8 g/dl (6.4-8.2)
[2024-02-10] MEDS: predniSONE 10 MG TABLET (UD) PO SCH (09:46)
[2024-02-10] MEDS: BENZONATATE 200 MG CAPSULE PO PRN (10:24)
[2024-02-10 10:38] LABS: ANISOCYTOSIS 2+; MACROCYTOSIS 1+
[2024-02-10] MEDS ORDERED: SODIUM CHLORIDE 250 ML IV PRN (12:26)
[2024-02-11] MEDS: oxyCODONE HCL 5 MG TABLET PO ONE ×2 (05:16→11:38)
[2024-02-11 09:28] LABS: HEMATOCRIT 27.8 % (32.4-45.2); HEMOGLOBIN 9.2 GM/dL (10.7-15.3); MCH 29.1 pg (25.7-33.7); MEAN CELL VOLUME 88.4 fl (80-96); MEAN PLT VOLUME 7.9 fl (7.5-11.1); PLATELET COUNT 304 10^3/uL (134-434); RBC 3.15 M/mm3 (3.60-5.2); RDW 14.2 % (11.6-15.6); WHITE BLOOD COUNT 5.3 K/mm3 (4.0-10.0)
[2024-02-11 10:09] LABS: CHLORIDE 98 mmol/L (98-107); SODIUM 137 mmol/L (136-145)
[2024-02-11 10:11] LABS: POTASSIUM 2.8 mmol/L (3.5-5.1)
[2024-02-11 10:19] LABS: CALCIUM 9.3 mg/dL (8.5-10.1)
[2024-02-11 10:20] LABS: ALBUMIN 3.2 g/dl (3.4-5.0); ANION GAP 11 mmol/L (4-13); BLOOD UREA NITROGEN 55.8 mg/dL (7-18); CO2 29 mmol/L (21-32); GLUCOSE,RANDOM 125 mg/dL (74-106); MAGNESIUM 1.8 mg/dL (1.8-2.4)
[2024-02-11 10:23] LABS: CREATININE 3.2 mg/dL (0.55-1.3); PHOSPHOROUS 3.6 mg/dL (2.5-4.9); SGOT/AST 14 U/L (15-37)
[2024-02-11 10:24] LABS: BILIRUBIN,TOTAL 0.6 mg/dL (0.2-1); TOT PROT 6.3 g/dl (6.4-8.2)
[2024-02-11 10:25] LABS: ALK PHOS 63 U/L (45-117)
[2024-02-11 10:26] LABS: SGPT/ALT 32 U/L (13-61)
[2024-02-11 11:11] LABS: ANISOCYTOSIS 1+; MACROCYTOSIS 1+
[2024-02-11] MEDS: POTASSIUM CHLORIDE ORAL LIQUID 20 MEQ/15 ML PO ONE ×2 (11:38→13:28)
[2024-02-11 12:51] VITALS: RESP 18
[2024-02-11] MEDS: KCL 10 MEQ IVPB 10 MEQ/100 ML INFUS.BAG IVPB SCH (12:57)
[2024-02-11 13:54] VITALS: BP 108/72; PULSE 118; TEMP 98.6
[2024-02-11] MEDS ORDERED: oxyCODONE HCL 5 MG TABLET PO PRN (16:00)
== END 2024-02-11 16:33 | disposition home health service (06) | DRG 597 ==
LOC: JER 12:21 → JERBED 17:23 → J7W 18:45 → J4W 23:39 → OBSVTOIN 02-07 10:47
PROVIDERS: ADMIT Internal Medicine; ATTEND Internal Medicine
PROC: 5A1D70Z Performance of Urinary Filtration, Intermittent, Less than 6 Hours Per Day (ICD-10-PCS; principal; 2024-02-06)
DX: C50.919 Malignant neoplasm of unspecified site of unspecified female breast (principal); J18.9 Pneumonia, unspecified organism; N18.6 End stage renal disease; I48.92 Unspecified atrial flutter; N17.9 Acute kidney failure, unspecified; I12.0 Hypertensive chronic kidney disease with stage 5 chronic kidney disease or end stage renal disease; C78.00 Secondary malignant neoplasm of unspecified lung; J91.0 Malignant pleural effusion; C79.51 Secondary malignant neoplasm of bone; I47.10 Supraventricular tachycardia, unspecified; J43.9 Emphysema, unspecified; Z99.81 Dependence on supplemental oxygen; Z99.2 Dependence on renal dialysis; D64.9 Anemia, unspecified; I48.91 Unspecified atrial fibrillation; E87.6 Hypokalemia
CPT/HCPCS: 0241U-QW; 36415; 71045-TC-FY; 71250-TC; 80053; 82962; 83735; 84100; 84484; 85025; 85027; 85610; 85730; 86704; 86705; 86803; 87040; 87340; 87517; 93005; 93010; 93970-TC; 94640; 99285-25; G0378; J0131; J1644; P9047

== ENCOUNTER 2024-03-01 13:02 | Inpatient (IN) | payer BC ==
[2024-03-01] MEDS ORDERED: dilTIAZem HCL 60 MG TABLET ONE (14:13)
[2024-03-01] MEDS ORDERED: HYDROmorphone HCL CARPU-JECT 2 MG/1 ML DISP.SYRIN ONE (14:19)
[2024-03-01] MEDS: HYDROmorphone HCl 2 MG/ML VIAL IVPUSH ONE (14:20)
[2024-03-01 15:28] LABS: VENOUS BASE EXCESS 2.7 mmol/L (-2-2); VENOUS O2 SATURATION 43.4 % (70-80); VENOUS PCO2 47.5 mmHg (38-52); VENOUS PH 7.391 (7.310-7.410)
[2024-03-01 15:29] LABS: BASO % 0.6 % (0-2.0); EOS % 0.4 % (0-4.5); HEMATOCRIT 29.4 % (32.4-45.2); HEMOGLOBIN 9.5 GM/dL (10.7-15.3); LYMPH % 14.9 % (8-40); MCH 28.9 pg (25.7-33.7); MCHC 32.4 g/dl (32.0-36.0); MEAN CELL VOLUME 89.4 fl (80-96); MEAN PLT VOLUME 7.8 fl (7.5-11.1); MONO % 8.9 % (3.8-10.2); NEUT % 75.2 % (42.8-82.8); PLATELET COUNT 340 10^3/uL (134-434); RBC 3.29 M/mm3 (3.60-5.2); RDW 15.3 % (11.6-15.6); WHITE BLOOD COUNT 5.7 K/mm3 (4.0-10.0)
[2024-03-01 16:03] LABS: INR 1.1 (0.83-1.09); PROTHROMBIN TIME (PATIENT) 12.4 SEC (9.7-13.0)
[2024-03-01 16:05] LABS: ACTIVATED PTT 30.2 SECONDS (25.2-36.5)
[2024-03-01 16:43] LABS: POTASSIUM 3.4 mmol/L (3.5-5.1)
[2024-03-01 16:45] LABS: CALCIUM 9.5 mg/dL (8.5-10.1)
[2024-03-01 16:46] LABS: ALBUMIN 3.3 g/dl (3.4-5.0); BLOOD UREA NITROGEN 17.2 mg/dL (7-18)
[2024-03-01 16:48] LABS: CREATININE 3.4 mg/dL (0.55-1.3)
[2024-03-01 16:49] LABS: MAGNESIUM 1.9 mg/dL (1.8-2.4); PHOSPHOROUS 2.9 mg/dL (2.5-4.9)
[2024-03-01 16:50] LABS: BILIRUBIN,TOTAL 1.2 mg/dL (0.2-1); TOT PROT 7.2 g/dl (6.4-8.2)
[2024-03-01 16:57] LABS: N-TERMINAL BNP 2740.7 pg/ml (5-125)
[2024-03-01] MEDS ORDERED: ALBUTEROL SO4 2.5/IPRATROPIUM 0.5 INH SOL 3 ML VIAL.NEB. NEB PRN (17:57)
[2024-03-01] MEDS ORDERED: oxyCODONE HCL 5 MG TABLET ONE (19:42)
[2024-03-01] MEDS: oxyCODONE HCL 5 MG TABLET PO PRN (19:45)
[2024-03-01] MEDS ORDERED: HEPARIN NA (PORCINE) 5,000 UNITS/ML 1ML VIAL ONE (20:56)
[2024-03-01] MEDS ORDERED: ATORVASTATIN CA 20 MG TABLET (FP) ONE (20:56)
[2024-03-01] MEDS: BUDESONIDE/FORMETEROL FUMARATE 160/4.5 mcg INHALER IH SCH (21:04)
[2024-03-01] MEDS: HEPARIN NA (PORCINE) 5,000 UNITS/ML 1ML VIAL SQ SCH (21:04)
[2024-03-01] MEDS: ATORVASTATIN CA 20 MG TABLET (FP) PO SCH (21:04)
[2024-03-02] MEDS: ACETAMINOPHEN 1000 MG/100 ML BAG IVPB ONE (02:20)
[2024-03-02] MEDS ORDERED: oxyCODONE HCL 5 MG TABLET ONE (04:24)
[2024-03-02] MEDS: ASPIRIN COATED 81 MG TABLET.EC PO SCH (10:00)
[2024-03-02] MEDS ORDERED: EPOETIN ALFA-EPBX 4,000 UNIT/ML VIAL SQ ONE (10:04)
[2024-03-02] MEDS ORDERED: SODIUM CHLORIDE 250 ML IV PRN (10:04)
[2024-03-02] MEDS: POTASSIUM CHLORIDE ORAL LIQUID 20 MEQ/15 ML PO ONE (18:16)
[2024-03-03 08:06] LABS: HEMATOCRIT 26.2 % (32.4-45.2); HEMOGLOBIN 8.4 GM/dL (10.7-15.3); MCH 29.2 pg (25.7-33.7); MCHC 31.9 g/dl (32.0-36.0); MEAN CELL VOLUME 91.6 fl (80-96); PLATELET COUNT 310 10^3/uL (134-434); RBC 2.86 M/mm3 (3.60-5.2); RDW 14.9 % (11.6-15.6); WHITE BLOOD COUNT 5.7 K/mm3 (4.0-10.0)
[2024-03-03 08:26] LABS: POTASSIUM 3.8 mmol/L (3.5-5.1)
[2024-03-03 08:38] LABS: CALCIUM 9.4 mg/dL (8.5-10.1)
[2024-03-03 08:40] LABS: BLOOD UREA NITROGEN 9.4 mg/dL (7-18)
[2024-03-03 08:42] LABS: ALBUMIN 3.3 g/dl (3.4-5.0); CREATININE 3.1 mg/dL (0.55-1.3); PHOSPHOROUS 2.3 mg/dL (2.5-4.9)
[2024-03-03 08:43] LABS: MAGNESIUM 1.7 mg/dL (1.8-2.4); TOT PROT 6.5 g/dl (6.4-8.2)
[2024-03-03 08:46] LABS: BILIRUBIN,TOTAL 0.8 mg/dL (0.2-1)
[2024-03-03] MEDS ORDERED: DOCUSATE NA 100 MG/10 ML UNIT-DOSE CUPS PO PRN (13:45)
[2024-03-03] MEDS ORDERED: SODIUM CHLORIDE 250 ML IV PRN (14:10)
[2024-03-03] MEDS: NAPH,MB-DB/K PH,MBDB POWDER PACKET PO SCH (16:42)
[2024-03-03] MEDS: MAGNESIUM OXIDE 400 MG TABLET (FP) PO ONE (16:43)
[2024-03-03] MEDS: MAGNESIUM SULFATE IN WATER 2 GM/50 ML IVPB IVPB ONE (16:43)
[2024-03-03] MEDS: oxyCODONE HCL 5 MG TABLET PO PRN (17:40)
[2024-03-04] MEDS: guaiFENesin 200 MG/10 ML 10 ML UNIT-DOSE CUPS PO ONE (00:04)
[2024-03-04] MEDS: FAMOTIDINE 20 MG TABLET PO SCH (06:39)
[2024-03-04 09:35] LABS: HEMATOCRIT 22.6 % (32.4-45.2); HEMOGLOBIN 7.2 GM/dL (10.7-15.3); MCH 29.1 pg (25.7-33.7); MCHC 31.8 g/dl (32.0-36.0); MEAN CELL VOLUME 91.4 fl (80-96); MEAN PLT VOLUME 7.5 fl (7.5-11.1); PLATELET COUNT 286 10^3/uL (134-434); RBC 2.47 M/mm3 (3.60-5.2); RDW 14.9 % (11.6-15.6); WHITE BLOOD COUNT 5.6 K/mm3 (4.0-10.0)
[2024-03-04 09:50] LABS: POTASSIUM 3.8 mmol/L (3.5-5.1)
[2024-03-04 09:52] LABS: CALCIUM 8.6 mg/dL (8.5-10.1)
[2024-03-04 09:53] LABS: ALBUMIN 2.8 g/dl (3.4-5.0); BLOOD UREA NITROGEN 14.6 mg/dL (7-18)
[2024-03-04 09:56] LABS: CREATININE 3.8 mg/dL (0.55-1.3)
[2024-03-04 09:57] LABS: BILIRUBIN,TOTAL 0.4 mg/dL (0.2-1); TOT PROT 5.7 g/dl (6.4-8.2)
[2024-03-04] MEDS: POLYETHYLENE GLYCOL (HEALTHYLAX) 3350 17 GM PACKET PO SCH (12:38)
[2024-03-04] MEDS: HEPARIN NA (PORCINE) 5,000 UNITS/ML 1ML VIAL IVPUSH ONE (12:41)
[2024-03-04] MEDS: ALBUMIN HUMAN 25% 12.5 GM/50 ML VIAL IV SCH (12:51)
[2024-03-04] MEDS: guaiFENesin 200 MG/10 ML 10 ML UNIT-DOSE CUPS PO PRN (15:04)
[2024-03-04] MEDS: ALBUTEROL SO4 2.5/IPRATROPIUM 0.5 INH SOL 3 ML VIAL.NEB. NEB SCH (15:33)
[2024-03-05 07:52] LABS: HEMATOCRIT 24.4 % (32.4-45.2); HEMOGLOBIN 7.9 GM/dL (10.7-15.3); MCH 29.5 pg (25.7-33.7); MCHC 32.3 g/dl (32.0-36.0); MEAN CELL VOLUME 91.4 fl (80-96); MEAN PLT VOLUME 7.9 fl (7.5-11.1); PLATELET COUNT 303 10^3/uL (134-434); RBC 2.67 M/mm3 (3.60-5.2); WHITE BLOOD COUNT 5.7 K/mm3 (4.0-10.0)
[2024-03-05 08:09] LABS: POTASSIUM 3.9 mmol/L (3.5-5.1)
[2024-03-05 08:18] LABS: CALCIUM 9.2 mg/dL (8.5-10.1)
[2024-03-05 08:19] LABS: BLOOD UREA NITROGEN 10.6 mg/dL (7-18)
[2024-03-05 08:22] LABS: CREATININE 3.4 mg/dL (0.55-1.3); PHOSPHOROUS 2.9 mg/dL (2.5-4.9)
[2024-03-05] MEDS: dilTIAZem HCL 50 MG/10 ML - 10 ML VIAL IVPUSH ONE (14:25)
[2024-03-05] MEDS: dilTIAZem HCL 30 MG TABLET PO SCH (17:12)
[2024-03-07] MEDS ORDERED: SODIUM CHLORIDE 250 ML IV PRN (08:28)
[2024-03-07 10:12] LABS: BASO % 0.7 % (0-2.0); EOS % 1.3 % (0-4.5); HEMATOCRIT 20.9 % (32.4-45.2); LYMPH % 11.2 % (8-40); MCH 29.8 pg (25.7-33.7); MCHC 33.1 g/dl (32.0-36.0); MEAN PLT VOLUME 7.3 fl (7.5-11.1); MONO % 10.9 % (3.8-10.2); NEUT % 75.9 % (42.8-82.8); PLATELET COUNT 267 10^3/uL (134-434); RBC 2.32 M/mm3 (3.60-5.2); WHITE BLOOD COUNT 5.6 K/mm3 (4.0-10.0)
[2024-03-07 10:29] LABS: HEMOGLOBIN 6.9 GM/dL (10.7-15.3)
[2024-03-07 10:36] LABS: POTASSIUM 4.4 mmol/L (3.5-5.1)
[2024-03-07 10:38] LABS: CALCIUM 9.3 mg/dL (8.5-10.1)
[2024-03-07 10:39] LABS: ALBUMIN 2.9 g/dl (3.4-5.0); BLOOD UREA NITROGEN 24.4 mg/dL (7-18)
[2024-03-07 10:42] LABS: CREATININE 5.2 mg/dL (0.55-1.3); PHOSPHOROUS 4.4 mg/dL (2.5-4.9)
[2024-03-07 10:43] LABS: BILIRUBIN,TOTAL 0.5 mg/dL (0.2-1); TOT PROT 6.2 g/dl (6.4-8.2)
[2024-03-07] MEDS: EPOETIN ALFA-EPBX 10,000 UNIT/ML VIAL IVPUSH ONE (12:41)
[2024-03-07 17:22] LABS: ARTERIAL BLOOD GAS BASE EXCESS 6.4 mmol/L (-2-2); ARTERIAL BLOOD GAS PO2 71.9 mmHg (80-100); ARTERIAL BLOOD GAS pH 7.448 (7.350-7.450)
[2024-03-07] MEDS: ONDANSETRON 4 MG/2 ML VIAL IVPB ONE (19:17)
[2024-03-07 19:49] LABS: HEMATOCRIT 22.6 % (32.4-45.2); HEMOGLOBIN 7.4 GM/dL (10.7-15.3); MCH 29.3 pg (25.7-33.7); MCHC 32.7 g/dl (32.0-36.0); MEAN CELL VOLUME 89.7 fl (80-96); MEAN PLT VOLUME 7.5 fl (7.5-11.1); PLATELET COUNT 265 10^3/uL (134-434); RBC 2.52 M/mm3 (3.60-5.2); RDW 14.8 % (11.6-15.6); WHITE BLOOD COUNT 6.2 K/mm3 (4.0-10.0)
[2024-03-07] MEDS: HEPARIN NA (PORCINE) 5,000 UNITS/ML 1ML VIAL SQ SCH (22:41)
[2024-03-08 07:56] LABS: BASO % 1.1 % (0-2.0); EOS % 1.2 % (0-4.5); HEMATOCRIT 24.8 % (32.4-45.2); HEMOGLOBIN 8.1 GM/dL (10.7-15.3); LYMPH % 14.6 % (8-40); MCH 29.5 pg (25.7-33.7); MCHC 32.8 g/dl (32.0-36.0); MEAN PLT VOLUME 7.8 fl (7.5-11.1); MONO % 10.5 % (3.8-10.2); NEUT % 72.6 % (42.8-82.8); PLATELET COUNT 336 10^3/uL (134-434); RBC 2.76 M/mm3 (3.60-5.2); WHITE BLOOD COUNT 6.6 K/mm3 (4.0-10.0)
[2024-03-08 08:12] LABS: POTASSIUM 4.3 mmol/L (3.5-5.1)
[2024-03-08 08:21] LABS: ALBUMIN 3.1 g/dl (3.4-5.0)
[2024-03-08 08:22] LABS: BLOOD UREA NITROGEN 12.3 mg/dL (7-18); CALCIUM 9.5 mg/dL (8.5-10.1)
[2024-03-08 08:25] LABS: CREATININE 3.4 mg/dL (0.55-1.3); PHOSPHOROUS 3.1 mg/dL (2.5-4.9)
[2024-03-08 08:26] LABS: BILIRUBIN,TOTAL 0.6 mg/dL (0.2-1); TOT PROT 6.6 g/dl (6.4-8.2)
[2024-03-08] MEDS: ONDANSETRON 4 MG/2 ML VIAL IVPB ONE (10:16)
[2024-03-08] MEDS: BENZONATATE 200 MG CAPSULE PO PRN (10:17)
[2024-03-08] MEDS ORDERED: SODIUM CHLORIDE 250 ML IV PRN (11:34)
[2024-03-08] MEDS: ONDANSETRON 4 MG TABLET PO ONE (14:53)
[2024-03-08] MEDS: TORSEMIDE 20 MG TABLET (FP) PO SCH (14:53)
[2024-03-08 16:25] VITALS: BMI 22.7
[2024-03-09 08:07] LABS: BASO % 0.9 % (0-2.0); EOS % 1.3 % (0-4.5); HEMATOCRIT 22.1 % (32.4-45.2); HEMOGLOBIN 7.1 GM/dL (10.7-15.3); LYMPH % 9.4 % (8-40); MCH 29.4 pg (25.7-33.7); MCHC 32.4 g/dl (32.0-36.0); MEAN CELL VOLUME 90.9 fl (80-96); MEAN PLT VOLUME 7.6 fl (7.5-11.1); MONO % 12.6 % (3.8-10.2); NEUT % 75.8 % (42.8-82.8); PLATELET COUNT 287 10^3/uL (134-434); RBC 2.43 M/mm3 (3.60-5.2); WHITE BLOOD COUNT 6.2 K/mm3 (4.0-10.0)
[2024-03-09 08:17] LABS: POTASSIUM 4.4 mmol/L (3.5-5.1)
[2024-03-09 08:22] LABS: ALBUMIN 2.9 g/dl (3.4-5.0)
[2024-03-09 08:23] LABS: CALCIUM 9.4 mg/dL (8.5-10.1)
[2024-03-09 08:24] LABS: BLOOD UREA NITROGEN 18.5 mg/dL (7-18); MAGNESIUM 2.2 mg/dL (1.8-2.4)
[2024-03-09 08:27] LABS: CREATININE 4.9 mg/dL (0.55-1.3); PHOSPHOROUS 4.1 mg/dL (2.5-4.9)
[2024-03-09 08:28] LABS: BILIRUBIN,TOTAL 0.4 mg/dL (0.2-1); TOT PROT 6.2 g/dl (6.4-8.2)
[2024-03-09] MEDS: ALBUMIN HUMAN 25% 12.5 GM/50 ML VIAL IV SCH (10:00)
[2024-03-09] MEDS: EPOETIN ALFA-EPBX 10,000 UNIT/ML VIAL IVPUSH ONE (12:30)
[2024-03-09] MEDS: AMINO ACIDS/PROTEIN HYDROLYS 30 ML LIQUID.PKT PO SCH (13:13)
[2024-03-10] MEDS: ALBUTEROL SO4 2.5/IPRATROPIUM 0.5 INH SOL 3 ML VIAL.NEB. NEB ONE ×2 (03:47→04:00)
[2024-03-10 07:46] LABS: BASO % 0.9 % (0-2.0); EOS % 1.6 % (0-4.5); HEMATOCRIT 23.4 % (32.4-45.2); HEMOGLOBIN 7.8 GM/dL (10.7-15.3); LYMPH % 13.7 % (8-40); MCH 29.8 pg (25.7-33.7); MCHC 33.2 g/dl (32.0-36.0); MEAN PLT VOLUME 7.6 fl (7.5-11.1); MONO % 13.2 % (3.8-10.2); NEUT % 70.6 % (42.8-82.8); PLATELET COUNT 277 10^3/uL (134-434); RDW 15.5 % (11.6-15.6); WHITE BLOOD COUNT 6.1 K/mm3 (4.0-10.0)
[2024-03-10 08:01] LABS: POTASSIUM 3.8 mmol/L (3.5-5.1)
[2024-03-10 08:08] LABS: ALBUMIN 3.4 g/dl (3.4-5.0); CALCIUM 9.2 mg/dL (8.5-10.1)
[2024-03-10 08:09] LABS: BLOOD UREA NITROGEN 10.3 mg/dL (7-18)
[2024-03-10 08:11] LABS: CREATININE 3.8 mg/dL (0.55-1.3)
[2024-03-10 08:12] LABS: PHOSPHOROUS 2.5 mg/dL (2.5-4.9)
[2024-03-10 08:13] LABS: BILIRUBIN,TOTAL 0.6 mg/dL (0.2-1); TOT PROT 6.2 g/dl (6.4-8.2)
[2024-03-10] MEDS: SODIUM CHLORIDE 0.9% 500 ML INFUS.BAG IV ONE ×2 (10:48→11:38)
[2024-03-10] MEDS: SODIUM CHLORIDE 250 ML IV STA (11:38)
[2024-03-10] MEDS: ONDANSETRON 4 MG/2 ML VIAL IVPUSH ONE (12:18)
[2024-03-10] MEDS: methylPREDNISolone NA SUCC 40 MG/1 ML VIAL IVPUSH SCH (13:17)
[2024-03-10] MEDS ORDERED: SODIUM CHLORIDE 250 ML IV PRN (15:06)
[2024-03-10] MEDS: ALBUTEROL SO4 2.5/IPRATROPIUM 0.5 INH SOL 3 ML VIAL.NEB. NEB PRN (20:11)
[2024-03-10] MEDS: guaiFENesin 600 MG TABLET.ER (FP) PO ONE (21:24)
[2024-03-11 08:26] LABS: HEMOGLOBIN 8.1 GM/dL (10.7-15.3); MCH 29.7 pg (25.7-33.7); MCHC 32.4 g/dl (32.0-36.0); MEAN CELL VOLUME 91.7 fl (80-96); PLATELET COUNT 262 10^3/uL (134-434); RBC 2.73 M/mm3 (3.60-5.2); RDW 15.1 % (11.6-15.6); WHITE BLOOD COUNT 5.1 K/mm3 (4.0-10.0)
[2024-03-11 08:40] LABS: POTASSIUM 4.3 mmol/L (3.5-5.1)
[2024-03-11 08:45] LABS: ALBUMIN 3.4 g/dl (3.4-5.0); BLOOD UREA NITROGEN 25.2 mg/dL (7-18); CALCIUM 9.5 mg/dL (8.5-10.1); MAGNESIUM 2.1 mg/dL (1.8-2.4)
[2024-03-11 08:49] LABS: BILIRUBIN,TOTAL 0.4 mg/dL (0.2-1); PHOSPHOROUS 3.7 mg/dL (2.5-4.9); TOT PROT 6.6 g/dl (6.4-8.2)
[2024-03-11 10:05] LABS: ANISOCYTOSIS 1+; MACROCYTOSIS 0
[2024-03-11] MEDS: ALBUMIN HUMAN 25% 12.5 GM/50 ML VIAL IV SCH (12:09)
[2024-03-11] MEDS: EPOETIN ALFA-EPBX 10,000 UNIT/ML VIAL IVPUSH ONE (12:09)
[2024-03-11] MEDS ORDERED: ALBUTEROL SO4 0.083% IH SOL 2.5 MG/3 ML VIAL.NEB. NEB PRN ×2 (16:04→16:15)
[2024-03-11] MEDS: ALBUTEROL SO4 2.5/IPRATROPIUM 0.5 INH SOL 3 ML VIAL.NEB. NEB SCH (16:04)
[2024-03-11] MEDS: ACETYLCYSTEINE 20% 200MG/ML 30 ML VIAL *FOR ORAL / INH USE ONLY NEB SCH (16:05)
[2024-03-11] MEDS ORDERED: ALBUTEROL SO4 0.083% IH SOL 2.5 MG/3 ML VIAL.NEB. NEB SCH (20:00)
[2024-03-11] MEDS: ALBUTEROL SO4 0.083% IH SOL 2.5 MG/3 ML VIAL.NEB. NEB SCH (20:10)
[2024-03-11] MEDS: ACETYLCYSTEINE 20% 200MG/ML 4 ML VIAL *FOR ORAL / INH USE ONLY NEB SCH (20:10)
[2024-03-12 08:48] LABS: BASO % 0.1 % (0-2.0); HEMATOCRIT 25.2 % (32.4-45.2); HEMOGLOBIN 8.5 GM/dL (10.7-15.3); LYMPH % 4.3 % (8-40); MCH 30.5 pg (25.7-33.7); MCHC 33.6 g/dl (32.0-36.0); MEAN CELL VOLUME 90.6 fl (80-96); MONO % 5.8 % (3.8-10.2); NEUT % 89.8 % (42.8-82.8); PLATELET COUNT 291 10^3/uL (134-434); RBC 2.78 M/mm3 (3.60-5.2); RDW 15.7 % (11.6-15.6); WHITE BLOOD COUNT 6.5 K/mm3 (4.0-10.0)
[2024-03-12 08:50] LABS: HEMATOCRIT 25.5 % (32.4-45.2); HEMOGLOBIN 8.4 GM/dL (10.7-15.3); MCH 29.9 pg (25.7-33.7); MCHC 33.1 g/dl (32.0-36.0); MEAN CELL VOLUME 90.4 fl (80-96); MEAN PLT VOLUME 7.9 fl (7.5-11.1); PLATELET COUNT 301 10^3/uL (134-434); RBC 2.82 M/mm3 (3.60-5.2); WHITE BLOOD COUNT 6.4 K/mm3 (4.0-10.0)
[2024-03-12 09:08] LABS: POTASSIUM 3.9 mmol/L (3.5-5.1)
[2024-03-12 09:09] LABS: POTASSIUM 3.9 mmol/L (3.5-5.1)
[2024-03-12 09:20] LABS: BLOOD UREA NITROGEN 23.3 mg/dL (7-18)
[2024-03-12 09:22] LABS: CALCIUM 9.7 mg/dL (8.5-10.1)
[2024-03-12 09:23] LABS: CREATININE 4.1 mg/dL (0.55-1.3)
[2024-03-12 09:27] LABS: ALBUMIN 3.7 g/dl (3.4-5.0); MAGNESIUM 1.9 mg/dL (1.8-2.4)
[2024-03-12 09:28] LABS: BLOOD UREA NITROGEN 23.5 mg/dL (7-18)
[2024-03-12 09:29] LABS: CALCIUM 9.6 mg/dL (8.5-10.1)
[2024-03-12 09:31] LABS: BILIRUBIN,TOTAL 0.5 mg/dL (0.2-1); CREATININE 4.1 mg/dL (0.55-1.3); PHOSPHOROUS 3.4 mg/dL (2.5-4.9); TOT PROT 7.4 g/dl (6.4-8.2)
[2024-03-12] MEDS: BENZONATATE 200 MG CAPSULE PO SCH (14:57)
[2024-03-13 02:35] VITALS: RESP 19
[2024-03-13 08:35] LABS: BASO % 0.2 % (0-2.0); HEMATOCRIT 26.6 % (32.4-45.2); HEMOGLOBIN 8.8 GM/dL (10.7-15.3); LYMPH % 3.7 % (8-40); MCH 29.8 pg (25.7-33.7); MEAN CELL VOLUME 90.1 fl (80-96); MONO % 5.9 % (3.8-10.2); NEUT % 90.2 % (42.8-82.8); PLATELET COUNT 276 10^3/uL (134-434); RBC 2.95 M/mm3 (3.60-5.2); WHITE BLOOD COUNT 6.3 K/mm3 (4.0-10.0)
[2024-03-13 08:39] LABS: POTASSIUM 4.2 mmol/L (3.5-5.1)
[2024-03-13 08:46] LABS: ALBUMIN 3.9 g/dl (3.4-5.0); CALCIUM 9.6 mg/dL (8.5-10.1)
[2024-03-13 08:47] LABS: MAGNESIUM 2.2 mg/dL (1.8-2.4)
[2024-03-13 08:48] LABS: BLOOD UREA NITROGEN 50.3 mg/dL (7-18)
[2024-03-13 08:49] LABS: CREATININE 5.5 mg/dL (0.55-1.3)
[2024-03-13 08:50] LABS: PHOSPHOROUS 4.5 mg/dL (2.5-4.9)
[2024-03-13 08:51] LABS: BILIRUBIN,TOTAL 0.5 mg/dL (0.2-1); TOT PROT 7.2 g/dl (6.4-8.2)
[2024-03-13] MEDS ORDERED: SODIUM CHLORIDE 250 ML IV PRN (11:21)
[2024-03-13] MEDS ORDERED: guaiFENesin/D-METHORPHAN HB 10 ML UNIT-DOSE CUPS PO PRN ×2 (11:43→12:21)
[2024-03-13 15:40] VITALS: BP 107/67; PULSE 100; TEMP 97.5
[2024-03-14] MEDS ORDERED: EPOETIN ALFA-EPBX 10,000 UNIT/ML VIAL SQ ONE (11:21)
== END 2024-03-13 17:35 | disposition home or self-care (01) | DRG 180 ==
LOC: JER 13:02 → JERBED 17:31 → J4W 03-02 13:12 → OBSVTOIN 03-06 14:39
PROVIDERS: ADMIT Internal Medicine; ATTEND Internal Medicine
PROC: 0WP9X3Z Removal of Infusion Device from Right Pleural Cavity, External Approach (ICD-10-PCS; 2024-03-03)
PROC: 5A1D70Z Performance of Urinary Filtration, Intermittent, Less than 6 Hours Per Day (ICD-10-PCS; principal; 2024-03-07)
PROC: 5A1D70Z Performance of Urinary Filtration, Intermittent, Less than 6 Hours Per Day (ICD-10-PCS; 2024-03-09)
PROC: 5A1D70Z Performance of Urinary Filtration, Intermittent, Less than 6 Hours Per Day (ICD-10-PCS; 2024-03-11)
DX: C78.2 Secondary malignant neoplasm of pleura (principal); N18.6 End stage renal disease; J84.9 Interstitial pulmonary disease, unspecified; I48.92 Unspecified atrial flutter; I47.10 Supraventricular tachycardia, unspecified; I12.0 Hypertensive chronic kidney disease with stage 5 chronic kidney disease or end stage renal disease; C50.911 Malignant neoplasm of unspecified site of right female breast; J91.0 Malignant pleural effusion; I48.91 Unspecified atrial fibrillation; C50.919 Malignant neoplasm of unspecified site of unspecified female breast; J44.9 Chronic obstructive pulmonary disease, unspecified; E87.6 Hypokalemia; I48.0 Paroxysmal atrial fibrillation; E83.42 Hypomagnesemia; E83.39 Other disorders of phosphorus metabolism; D63.1 Anemia in chronic kidney disease; G89.3 Neoplasm related pain (acute) (chronic); Z99.2 Dependence on renal dialysis
CPT/HCPCS: 0241U-QW; 32552; 36415; 36600; 70551-TC; 71045-TC-FY; 71046-TC-FY; 71250-TC; 80048; 80053; 82140; 82550; 82803; 82962; 83735; 83880; 84100; 84436; 84443; 84481; 84484; 85025; 85027; 85610; 85730; 86850; 86900; 86901; 86922; 87340; 93005; 93010; 93971-TC; 94010; 94640; 97116-GP; 97162-GP; 99285-25; G0378; J0131; J1644; P9047; Q5106

== ENCOUNTER 2024-03-17 14:58 | Inpatient (IN) | payer BC ==
[2024-03-17] MEDS ORDERED: CEFEPIME HCL/D5W 2 GM/50 ML BAG IVPB ONE (15:41)
[2024-03-17] MEDS ORDERED: VANCOMYCIN/WATER 1250 MG 1,250 MG/250 ML BAG IVPB ONE (15:41)
[2024-03-17] MEDS: CEFEPIME HCL 2 GM VIAL (RESTRICTED TO ID) IVPB ONE (15:55)
[2024-03-17 16:01] LABS: HEMATOCRIT 28.8 % (32.4-45.2); HEMOGLOBIN 9.3 GM/dL (10.7-15.3); LYMPH % 2.1 % (8-40); MCHC 32.2 g/dl (32.0-36.0); MEAN CELL VOLUME 90.1 fl (80-96); MEAN PLT VOLUME 8.8 fl (7.5-11.1); MONO % 10.5 % (3.8-10.2); NEUT % 86.4 % (42.8-82.8); PLATELET COUNT 275 10^3/uL (134-434); RDW 16.8 % (11.6-15.6); WHITE BLOOD COUNT 12.6 K/mm3 (4.0-10.0)
[2024-03-17] MEDS: VANCOMYCIN/WATER 1250 MG 1,250 MG/250 ML BAG IVPB ONE (16:05)
[2024-03-17 16:08] LABS: INR 1.1 (0.83-1.09); PROTHROMBIN TIME (PATIENT) 12.4 SEC (9.7-13.0); VENOUS BASE EXCESS -2.8 mmol/L (-2-2); VENOUS O2 SATURATION 61.4 % (70-80); VENOUS PCO2 48.9 mmHg (38-52); VENOUS PH 7.308 (7.310-7.410)
[2024-03-17] MEDS ORDERED: dilTIAZem HCL 125 MG/25 ML - 25 ML VIAL ONE ×2 (16:09→16:41)
[2024-03-17 16:11] LABS: ACTIVATED PTT 28.8 SECONDS (25.2-36.5)
[2024-03-17] MEDS: dilTIAZem HCL 50 MG/10 ML - 10 ML VIAL IVPUSH ONE ×2 (16:13→16:51)
[2024-03-17 16:18] LABS: CHLORIDE 90 mmol/L (98-107); SODIUM 131 mmol/L (136-145)
[2024-03-17 16:21] LABS: CALCIUM 9.8 mg/dL (8.5-10.1)
[2024-03-17 16:22] LABS: ALBUMIN 3.5 g/dl (3.4-5.0); ANION GAP 15 mmol/L (4-13); CO2 25 mmol/L (21-32); GLUCOSE,RANDOM 112 mg/dL (74-106)
[2024-03-17 16:25] LABS: SGOT/AST 13 U/L (15-37); SGPT/ALT 8 U/L (13-61)
[2024-03-17 16:27] LABS: TOT PROT 6.8 g/dl (6.4-8.2)
[2024-03-17 16:28] LABS: ALK PHOS 79 U/L (45-117)
[2024-03-17 16:35] LABS: BLOOD UREA NITROGEN 136.5 mg/dL (7-18); CREATININE 7.8 mg/dL (0.55-1.3)
[2024-03-17] MEDS: SODIUM CHLORIDE 0.9% 500 ML INFUS.BAG IV ONE ×2 (17:14→18:07)
[2024-03-17] MEDS ORDERED: SODIUM CHLORIDE 250 ML IV PRN ×2 (18:27→22:31)
[2024-03-17] MEDS: PHENYLEPHRINE NS PREMIX 50,000 MCG/500 ML BAG CVP SCH (21:15)
[2024-03-17] MEDS ORDERED: PHENYLEPHRINE HCL 10 MG/1 ML SINGLE DOSE VIAL ONE (21:20)
[2024-03-17] MEDS ORDERED: MUPIROCIN 2% TOPICAL OINTMENT FOR DECOLONIZATION NS SCH (22:00)
[2024-03-17] MEDS ORDERED: CHLORHEXIDINE GLUCONATE 4% CLEANSER FOR DECOLONIZATION TP SCH (22:00)
[2024-03-17 22:10] LABS: BASO % 0.1 % (0-2.0); HEMATOCRIT 27.5 % (32.4-45.2); HEMOGLOBIN 8.5 GM/dL (10.7-15.3); LYMPH % 3.2 % (8-40); MCH 28.3 pg (25.7-33.7); MCHC 30.8 g/dl (32.0-36.0); MEAN CELL VOLUME 91.9 fl (80-96); MONO % 12.3 % (3.8-10.2); NEUT % 84.4 % (42.8-82.8); PLATELET COUNT 233 10^3/uL (134-434); RDW 16.2 % (11.6-15.6); WHITE BLOOD COUNT 13.8 K/mm3 (4.0-10.0)
[2024-03-17 22:19] LABS: INR 1.13 (0.83-1.09); PROTHROMBIN TIME (PATIENT) 12.7 SEC (9.7-13.0)
[2024-03-17 22:21] LABS: ACTIVATED PTT 29.4 SECONDS (25.2-36.5)
[2024-03-17 22:27] LABS: CHLORIDE 94 mmol/L (98-107); POTASSIUM 4.7 mmol/L (3.5-5.1); SODIUM 132 mmol/L (136-145)
[2024-03-17 22:29] LABS: CALCIUM 9.2 mg/dL (8.5-10.1); GLUCOSE,RANDOM 130 mg/dL (74-106)
[2024-03-17 22:30] LABS: ANION GAP 16 mmol/L (4-13); CO2 21 mmol/L (21-32); MAGNESIUM 2.4 mg/dL (1.8-2.4)
[2024-03-17 22:32] LABS: CHOLESTEROL 141 mg/dL (50-200); PHOSPHOROUS 7.5 mg/dL (2.5-4.9)
[2024-03-17 22:33] LABS: LDL CHOLESTEROL (ONLY SJRH) 35 mg/dL (5-100); SGOT/AST 13 U/L (15-37); SGPT/ALT 10 U/L (13-61)
[2024-03-17] MEDS: HEPARIN NA (PORCINE) 5,000 UNITS/ML 1ML VIAL SQ SCH (22:33)
[2024-03-17 22:34] LABS: BILIRUBIN,TOTAL 0.8 mg/dL (0.2-1)
[2024-03-17 22:35] LABS: ALK PHOS 65 U/L (45-117); HDL CHOLESTEROL 60 mg/dL (40-60); TOT PROT 5.8 g/dl (6.4-8.2)
[2024-03-17 22:37] LABS: BLOOD UREA NITROGEN 133.1 mg/dL (7-18); CREATININE 7.5 mg/dL (0.55-1.3)
[2024-03-18] MEDS: oxyCODONE HCL 5 MG TABLET PO PRN (03:20)
[2024-03-18 03:34] LABS: ARTERIAL BLD GAS O2 SATURATION 93.8 % (95-98); ARTERIAL BLOOD GAS BASE EXCESS -6.3 mmol/L (-2-2); ARTERIAL BLOOD GAS pH 7.314 (7.350-7.450)
[2024-03-18 03:36] LABS: ALLENS TEST POSITIVE
[2024-03-18 06:57] LABS: HEMATOCRIT 26.2 % (32.4-45.2); HEMOGLOBIN 8.3 GM/dL (10.7-15.3); MCH 28.8 pg (25.7-33.7); MCHC 31.6 g/dl (32.0-36.0); MEAN CELL VOLUME 91.1 fl (80-96); MEAN PLT VOLUME 8.7 fl (7.5-11.1); PLATELET COUNT 376 10^3/uL (134-434); RBC 2.88 M/mm3 (3.60-5.2); RDW 16.4 % (11.6-15.6); WHITE BLOOD COUNT 20.9 K/mm3 (4.0-10.0)
[2024-03-18 07:05] LABS: ARTERIAL BLD GAS O2 SATURATION 94.6 % (95-98); ARTERIAL BLOOD GAS BASE EXCESS -7.2 mmol/L (-2-2); ARTERIAL BLOOD GAS PO2 78.9 mmHg (80-100)
[2024-03-18 07:15] LABS: CHLORIDE 98 mmol/L (98-107); POTASSIUM 4.6 mmol/L (3.5-5.1); SODIUM 135 mmol/L (136-145)
[2024-03-18 07:17] LABS: ANION GAP 17 mmol/L (4-13); CALCIUM 8.7 mg/dL (8.5-10.1); CO2 21 mmol/L (21-32); GLUCOSE,RANDOM 97 mg/dL (74-106); MAGNESIUM 2.2 mg/dL (1.8-2.4)
[2024-03-18 07:18] LABS: ALBUMIN 2.7 g/dl (3.4-5.0)
[2024-03-18 07:20] LABS: CREATININE 7.3 mg/dL (0.55-1.3); SGOT/AST 8 U/L (15-37); SGPT/ALT 8 U/L (13-61)
[2024-03-18 07:21] LABS: PHOSPHOROUS 7.4 mg/dL (2.5-4.9)
[2024-03-18 07:22] LABS: BILIRUBIN,TOTAL 0.9 mg/dL (0.2-1); TOT PROT 5.5 g/dl (6.4-8.2)
[2024-03-18 07:23] LABS: ALK PHOS 64 U/L (45-117)
[2024-03-18 07:26] LABS: BLOOD UREA NITROGEN 127.9 mg/dL (7-18)
[2024-03-18] MEDS: EPOETIN ALFA-EPBX 10,000 UNIT/ML VIAL SQ ONE (09:16)
[2024-03-18] MEDS: ALBUMIN HUMAN 25% 12.5 GM/50 ML VIAL IV SCH (09:30)
[2024-03-18 09:48] LABS: ANISOCYTOSIS 0; MACROCYTOSIS 0; ROULEAU 1+
[2024-03-18] MEDS: guaiFENesin 600 MG TABLET.ER (FP) PO SCH (10:49)
[2024-03-18] MEDS: MUPIROCIN 2% TOPICAL OINTMENT FOR DECOLONIZATION NS SCH (10:50)
[2024-03-18] MEDS: ONDANSETRON 4 MG/2 ML VIAL IVPUSH ONE (11:47)
[2024-03-18] MEDS: ALBUTEROL SO4 2.5/IPRATROPIUM 0.5 INH SOL 3 ML VIAL.NEB. NEB PRN (15:09)
[2024-03-18] MEDS: dilTIAZem HCL 50 MG/10 ML - 10 ML VIAL IVPUSH ONE (17:14)
[2024-03-18] MEDS ORDERED: EPOETIN ALFA-EPBX 10,000 UNIT/ML VIAL SQ ONE (18:27)
[2024-03-18] MEDS ORDERED: ALBUMIN HUMAN 25% 12.5 GM/50 ML VIAL IVPB SCH (18:30)
[2024-03-18] MEDS ORDERED: METOPROLOL TARTRATE 5 MG/5 ML VIAL ONE (18:56)
[2024-03-18] MEDS: METOPROLOL TARTRATE 5 MG/5 ML VIAL IVPUSH ONE (19:04)
[2024-03-18] MEDS: CHLORHEXIDINE GLUCONATE 4% CLEANSER FOR DECOLONIZATION TP SCH (21:47)
[2024-03-19 07:50] LABS: BASO % 0.2 % (0-2.0); HEMATOCRIT 23.8 % (32.4-45.2); HEMOGLOBIN 7.6 GM/dL (10.7-15.3); LYMPH % 3.6 % (8-40); MCH 29.1 pg (25.7-33.7); MCHC 32.1 g/dl (32.0-36.0); MEAN CELL VOLUME 90.6 fl (80-96); MEAN PLT VOLUME 8.8 fl (7.5-11.1); MONO % 12.6 % (3.8-10.2); NEUT % 83.6 % (42.8-82.8); PLATELET COUNT 282 10^3/uL (134-434); RBC 2.63 M/mm3 (3.60-5.2); WHITE BLOOD COUNT 14.1 K/mm3 (4.0-10.0)
[2024-03-19 08:01] LABS: CALCIUM 8.7 mg/dL (8.5-10.1); MAGNESIUM 2.1 mg/dL (1.8-2.4)
[2024-03-19 08:05] LABS: CREATININE 4.9 mg/dL (0.55-1.3); PHOSPHOROUS 5.8 mg/dL (2.5-4.9); TOT PROT 5.5 g/dl (6.4-8.2)
[2024-03-19 08:07] LABS: BILIRUBIN,TOTAL 0.8 mg/dL (0.2-1)
[2024-03-19 08:09] LABS: BLOOD UREA NITROGEN 69.7 mg/dL (7-18)
[2024-03-19] MEDS ORDERED: AMIODARONE IN DEXTROSE,ISO-OSM 150 MG/100 ML BAG ONE (09:01)
[2024-03-19] MEDS: AMIODARONE IN DEXTROSE,ISO-OSM 150 MG/100 ML BAG IVPB ONE (09:12)
[2024-03-19] MEDS: AMIODARONE IN DEXTROSE,ISO-OSM 360 MG/200 ML BAG IV SCH ×2 (09:29→15:00)
[2024-03-19] MEDS: SODIUM CHLORIDE FOR INHALATION 3 ML VIAL.NEB IH SCH (17:14)
[2024-03-20] MEDS: oxyCODONE HCL 5 MG TABLET PO PRN (05:43)
[2024-03-20 06:58] LABS: BASO % 0.2 % (0-2.0); EOS % 0.1 % (0-4.5); HEMATOCRIT 25.4 % (32.4-45.2); HEMOGLOBIN 7.9 GM/dL (10.7-15.3); LYMPH % 3.3 % (8-40); MCH 28.7 pg (25.7-33.7); MCHC 31.3 g/dl (32.0-36.0); MEAN CELL VOLUME 91.8 fl (80-96); MONO % 9.7 % (3.8-10.2); NEUT % 86.7 % (42.8-82.8); PLATELET COUNT 261 10^3/uL (134-434); RBC 2.76 M/mm3 (3.60-5.2); RDW 16.7 % (11.6-15.6); WHITE BLOOD COUNT 12.5 K/mm3 (4.0-10.0)
[2024-03-20 07:19] LABS: MAGNESIUM 1.4 mg/dL (1.8-2.4)
[2024-03-20] MEDS: dilTIAZem HCL 50 MG/10 ML - 10 ML VIAL IVPUSH ONE (10:31)
[2024-03-20] MEDS: DIGOXIN 0.125 MG TABLET PO SCH (12:44)
[2024-03-20] MEDS: DEXMEDETOMIDINE PREMIX 400 MCG/100 ML BAG IVPB SCH (14:45)
[2024-03-20] MEDS: PHENYLEPHRINE NS PREMIX 50,000 MCG/500 ML BAG CVP SCH (14:50)
[2024-03-20] MEDS ORDERED: LIDOCAINE HCL 1%, 10 MG/ML (20ML VIAL) ONE (15:50)
[2024-03-20] MEDS ORDERED: RAPID SEQUENCE INTUBATION KIT NR ONE (17:14)
[2024-03-20] MEDS ORDERED: MIDAZOLAM HCL 5 MG/1 ML Single Dose Vial ONE (17:32)
[2024-03-20] MEDS ORDERED: PROPOFOL 1,000,000 MCG/100 ML VIAL ONE (17:37)
[2024-03-20] MEDS: PROPOFOL 1,000,000 MCG/100 ML VIAL IVPB SCH (18:31)
[2024-03-20] MEDS: MIDAZOLAM HCL 5 MG/1 ML Single Dose Vial IVPUSH ONE (19:01)
[2024-03-21] MEDS ORDERED: PHENYLEPHRINE HCL 10 MG/1 ML SINGLE DOSE VIAL ONE (05:59)
[2024-03-21 07:34] LABS: HEMATOCRIT 25.5 % (32.4-45.2); HEMOGLOBIN 8.6 GM/dL (10.7-15.3); MCH 30.6 pg (25.7-33.7); MCHC 33.6 g/dl (32.0-36.0); MEAN CELL VOLUME 91.1 fl (80-96); PLATELET COUNT 251 10^3/uL (134-434); RDW 16.8 % (11.6-15.6); WHITE BLOOD COUNT 12.6 K/mm3 (4.0-10.0)
[2024-03-21 07:53] LABS: POTASSIUM 3.8 mmol/L (3.5-5.1)
[2024-03-21 07:56] LABS: CALCIUM 8.5 mg/dL (8.5-10.1)
[2024-03-21 07:57] LABS: ALBUMIN 2.4 g/dl (3.4-5.0); BLOOD UREA NITROGEN 77.1 mg/dL (7-18); MAGNESIUM 1.9 mg/dL (1.8-2.4)
[2024-03-21 08:00] LABS: PHOSPHOROUS 5.1 mg/dL (2.5-4.9)
[2024-03-21 08:01] LABS: BILIRUBIN,TOTAL 0.6 mg/dL (0.2-1); TOT PROT 4.9 g/dl (6.4-8.2)
[2024-03-21] MEDS ORDERED: SODIUM CHLORIDE 250 ML IV PRN (08:25)
[2024-03-21] MEDS ORDERED: VASopressin 20 UNITS/ML VIAL IV ONE (08:53)
[2024-03-21] MEDS: EPOETIN ALFA-EPBX 10,000 UNIT/ML VIAL IVPUSH ONE (09:34)
[2024-03-21] MEDS: FENTANYL NS IVPB 500 MCG/100 ML BAG IVPB SCH (10:42)
[2024-03-21] MEDS: VASopressin 40 UNITS/100 ML BAG IV SCH (12:01)
[2024-03-21 12:27] LABS: ARTERIAL BLD GAS O2 SATURATION 96.5 % (95-98); ARTERIAL BLOOD GAS BASE EXCESS -2.4 mmol/L (-2-2); ARTERIAL BLOOD GAS PO2 85.6 mmHg (80-100); ARTERIAL BLOOD GAS pH 7.394 (7.350-7.450)
[2024-03-21 12:33] LABS: INR 1.09 (0.83-1.09); INR 1.1 (0.83-1.09); PROTHROMBIN TIME (PATIENT) 12.3 SEC (9.7-13.0); PROTHROMBIN TIME (PATIENT) 12.4 SEC (9.7-13.0)
[2024-03-21 12:36] LABS: ACTIVATED PTT 28.1 SECONDS (25.2-36.5)
[2024-03-21] MEDS: dilTIAZem HCL 30 MG TABLET PO SCH (18:16)
[2024-03-22 08:16] LABS: POTASSIUM 3.9 mmol/L (3.5-5.1)
[2024-03-22 08:23] LABS: ALBUMIN 2.2 g/dl (3.4-5.0); CALCIUM 8.1 mg/dL (8.5-10.1); CREATININE 3.5 mg/dL (0.55-1.3); MAGNESIUM 1.8 mg/dL (1.8-2.4)
[2024-03-22 08:25] LABS: BILIRUBIN,TOTAL 0.6 mg/dL (0.2-1); BLOOD UREA NITROGEN 44.8 mg/dL (7-18)
[2024-03-22 08:26] LABS: TOT PROT 4.7 g/dl (6.4-8.2)
[2024-03-22 08:27] LABS: HEMATOCRIT 23.8 % (32.4-45.2); HEMOGLOBIN 7.5 GM/dL (10.7-15.3); MCH 29.4 pg (25.7-33.7); MCHC 31.6 g/dl (32.0-36.0); MEAN CELL VOLUME 93.2 fl (80-96); MEAN PLT VOLUME 9.7 fl (7.5-11.1); PLATELET COUNT 226 10^3/uL (134-434); RBC 2.56 M/mm3 (3.60-5.2); RDW 16.8 % (11.6-15.6); WHITE BLOOD COUNT 16.5 K/mm3 (4.0-10.0)
[2024-03-22] MEDS: DIGOXIN 0.5 MG/2 ML AMPUL IVPUSH ONE (10:33)
[2024-03-22] MEDS ORDERED: MIDAZOLAM HCL 2 MG/2 ML SINGLE DOSE VIAL IVPUSH PRN (14:46)
[2024-03-22] MEDS: FENTANYL NS IVPB 500 MCG/100 ML BAG IVPB SCH (14:52)
[2024-03-22] MEDS ORDERED: PHENYLEPHRINE HCL 10 MG/1 ML SINGLE DOSE VIAL ONE (21:47)
[2024-03-23 06:38] LABS: HEMATOCRIT 22.4 % (32.4-45.2); MCH 28.7 pg (25.7-33.7); MCHC 30.3 g/dl (32.0-36.0); MEAN CELL VOLUME 94.8 fl (80-96); MEAN PLT VOLUME 9.7 fl (7.5-11.1); PLATELET COUNT 187 10^3/uL (134-434); RBC 2.36 M/mm3 (3.60-5.2); RDW 17.8 % (11.6-15.6); WHITE BLOOD COUNT 22.4 K/mm3 (4.0-10.0)
[2024-03-23 06:53] LABS: HEMOGLOBIN 6.8 GM/dL (10.7-15.3)
[2024-03-23 06:57] LABS: CHLORIDE 106 mmol/L (98-107); POTASSIUM 4.2 mmol/L (3.5-5.1); SODIUM 138 mmol/L (136-145)
[2024-03-23 07:03] LABS: ANION GAP 14 mmol/L (4-13); BLOOD UREA NITROGEN 49.6 mg/dL (7-18); CALCIUM 8.4 mg/dL (8.5-10.1); CO2 18 mmol/L (21-32); GLUCOSE,RANDOM 96 mg/dL (74-106)
[2024-03-23 07:06] LABS: CREATININE 4.1 mg/dL (0.55-1.3); SGOT/AST 10 U/L (15-37); SGPT/ALT < 6 U/L (13-61)
[2024-03-23 07:07] LABS: BILIRUBIN,TOTAL 0.6 mg/dL (0.2-1); TOT PROT 4.6 g/dl (6.4-8.2)
[2024-03-23 07:09] LABS: ALK PHOS 70 U/L (45-117)
[2024-03-23] MEDS ORDERED: PHENYLEPHRINE HCL 10 MG/1 ML SINGLE DOSE VIAL ONE (08:34)
[2024-03-23 13:13] VITALS: BMI 27.9
[2024-03-23 17:03] LABS: HEMATOCRIT 27.7 % (32.4-45.2); HEMOGLOBIN 8.4 GM/dL (10.7-15.3); MCH 28.8 pg (25.7-33.7); MCHC 30.5 g/dl (32.0-36.0); MEAN CELL VOLUME 94.5 fl (80-96); MEAN PLT VOLUME 9.5 fl (7.5-11.1); PLATELET COUNT 193 10^3/uL (134-434); RBC 2.93 M/mm3 (3.60-5.2); RDW 17.3 % (11.6-15.6)
[2024-03-23] MEDS: NOREPINEPHRINE BITARTRATE/D5W 8 MG/250 ML BAG IVPB SCH (22:09)
[2024-03-23] MEDS ORDERED: dilTIAZem HCL 25 MG/5 ML - 5 ML VIAL ONE (22:43)
[2024-03-23] MEDS: dilTIAZem HCL 50 MG/10 ML - 10 ML VIAL IVPUSH ONE (23:15)
[2024-03-24 08:00] LABS: HEMATOCRIT 25.4 % (32.4-45.2); HEMOGLOBIN 8.1 GM/dL (10.7-15.3); MCH 29.6 pg (25.7-33.7); MCHC 31.7 g/dl (32.0-36.0); MEAN CELL VOLUME 93.4 fl (80-96); MEAN PLT VOLUME 9.4 fl (7.5-11.1); PLATELET COUNT 162 10^3/uL (134-434); RBC 2.72 M/mm3 (3.60-5.2); RDW 17.2 % (11.6-15.6); WHITE BLOOD COUNT 28.7 K/mm3 (4.0-10.0)
[2024-03-24 08:05] LABS: CHLORIDE 109 mmol/L (98-107); POTASSIUM 4.4 mmol/L (3.5-5.1); SODIUM 139 mmol/L (136-145)
[2024-03-24 08:17] LABS: ALBUMIN 1.9 g/dl (3.4-5.0); ANION GAP 15 mmol/L (4-13); BLOOD UREA NITROGEN 48.4 mg/dL (7-18); CALCIUM 8.1 mg/dL (8.5-10.1); CO2 15 mmol/L (21-32); GLUCOSE,RANDOM 97 mg/dL (74-106); MAGNESIUM 1.8 mg/dL (1.8-2.4)
[2024-03-24 08:20] LABS: CREATININE 4.3 mg/dL (0.55-1.3); PHOSPHOROUS 6.8 mg/dL (2.5-4.9); SGOT/AST 10 U/L (15-37)
[2024-03-24 08:21] LABS: BILIRUBIN,TOTAL 0.8 mg/dL (0.2-1); TOT PROT 4.5 g/dl (6.4-8.2)
[2024-03-24 08:22] LABS: ALK PHOS 79 U/L (45-117)
[2024-03-24] MEDS ORDERED: SODIUM CHLORIDE 250 ML IV PRN (09:00)
[2024-03-24 09:10] LABS: SGPT/ALT < 6 U/L (13-61)
[2024-03-24] MEDS: EPOETIN ALFA-EPBX 10,000 UNIT/ML VIAL SQ ONE (10:35)
[2024-03-24] MEDS: DIGOXIN 0.5 MG/2 ML AMPUL IVPUSH SCH (11:48)
[2024-03-25 06:29] LABS: ARTERIAL BLD GAS O2 SATURATION 94.5 % (95-98); ARTERIAL BLOOD GAS BASE EXCESS -5.6 mmol/L (-2-2); ARTERIAL BLOOD GAS pH 7.335 (7.350-7.450)
[2024-03-25 06:30] LABS: VENT MODE V-A/C; VENT RATE 18
[2024-03-25 07:22] LABS: HEMATOCRIT 24.4 % (32.4-45.2); HEMOGLOBIN 7.6 GM/dL (10.7-15.3); MCH 29.1 pg (25.7-33.7); MCHC 31.2 g/dl (32.0-36.0); MEAN CELL VOLUME 93.2 fl (80-96); MEAN PLT VOLUME 9.2 fl (7.5-11.1); PLATELET COUNT 114 10^3/uL (134-434); RBC 2.62 M/mm3 (3.60-5.2); RDW 17.3 % (11.6-15.6); WHITE BLOOD COUNT 22.5 K/mm3 (4.0-10.0)
[2024-03-25 07:23] LABS: CHLORIDE 109 mmol/L (98-107); POTASSIUM 3.4 mmol/L (3.5-5.1); SODIUM 142 mmol/L (136-145)
[2024-03-25 07:32] LABS: ANION GAP 11 mmol/L (4-13); BLOOD UREA NITROGEN 28.1 mg/dL (7-18); CALCIUM 7.8 mg/dL (8.5-10.1); CO2 22 mmol/L (21-32); GLUCOSE,RANDOM 100 mg/dL (74-106); MAGNESIUM 1.7 mg/dL (1.8-2.4)
[2024-03-25 07:33] LABS: ALBUMIN 1.8 g/dl (3.4-5.0)
[2024-03-25 07:35] LABS: SGOT/AST 10 U/L (15-37)
[2024-03-25 07:36] LABS: CREATININE 2.8 mg/dL (0.55-1.3); PHOSPHOROUS 4.3 mg/dL (2.5-4.9)
[2024-03-25 07:37] LABS: BILIRUBIN,TOTAL 0.8 mg/dL (0.2-1); TOT PROT 4.3 g/dl (6.4-8.2)
[2024-03-25 07:38] LABS: ALK PHOS 82 U/L (45-117)
[2024-03-25 07:43] LABS: SGPT/ALT < 6 U/L (13-61)
[2024-03-25] MEDS ORDERED: PHENYLEPHRINE HCL 10 MG/1 ML SINGLE DOSE VIAL ONE (09:49)
[2024-03-25] MEDS ORDERED: DIGOXIN 0.125 MG TABLET PO SCH (10:00)
[2024-03-25] MEDS ORDERED: VASopressin 20 UNITS/ML VIAL IV ONE (15:27)
[2024-03-26] MEDS ORDERED: CALCIUM GLUCONATE 10% - 1,000 MG/10 ML VIAL ONE (00:20)
[2024-03-26] MEDS: CALCIUM GLUCONATE 10% - 1,000 MG/10 ML VIAL IVPB ONE (00:28)
[2024-03-26] MEDS ORDERED: dilTIAZem HCL 25 MG/5 ML - 5 ML VIAL ONE (10:01)
[2024-03-26] MEDS ORDERED: PHENYLEPHRINE HCL 10 MG/1 ML SINGLE DOSE VIAL ONE (11:42)
[2024-03-26] MEDS ORDERED: SODIUM CHLORIDE 250 ML IV PRN (21:34)
[2024-03-27 08:05] LABS: HEMATOCRIT 24.9 % (32.4-45.2); HEMOGLOBIN 7.7 GM/dL (10.7-15.3); MCH 29.5 pg (25.7-33.7); MCHC 31.1 g/dl (32.0-36.0); MEAN CELL VOLUME 94.7 fl (80-96); MEAN PLT VOLUME 9.9 fl (7.5-11.1); PLATELET COUNT 62 10^3/uL (134-434); RBC 2.62 M/mm3 (3.60-5.2); RDW 17.7 % (11.6-15.6); WHITE BLOOD COUNT 20.6 K/mm3 (4.0-10.0)
[2024-03-27 08:08] LABS: CHLORIDE 112 mmol/L (98-107); POTASSIUM 3.5 mmol/L (3.5-5.1); SODIUM 142 mmol/L (136-145)
[2024-03-27 08:23] LABS: GLUCOSE,RANDOM 95 mg/dL (74-106)
[2024-03-27 08:24] LABS: BLOOD UREA NITROGEN 39.6 mg/dL (7-18); MAGNESIUM 1.7 mg/dL (1.8-2.4)
[2024-03-27 08:25] LABS: CALCIUM 8.1 mg/dL (8.5-10.1)
[2024-03-27 08:26] LABS: ALBUMIN 1.7 g/dl (3.4-5.0); ANION GAP 11 mmol/L (4-13); CO2 19 mmol/L (21-32); CREATININE 3.2 mg/dL (0.55-1.3); PHOSPHOROUS 5.1 mg/dL (2.5-4.9)
[2024-03-27 08:27] LABS: SGOT/AST 9 U/L (15-37)
[2024-03-27 08:28] LABS: BILIRUBIN,TOTAL 0.9 mg/dL (0.2-1); SGPT/ALT < 6 U/L (13-61); TOT PROT 4.6 g/dl (6.4-8.2)
[2024-03-27 08:29] LABS: ALK PHOS 83 U/L (45-117)
[2024-03-27] MEDS ORDERED: MORPHINE SULFATE/0.9% NACL/PF 100 MG/100 ML BAG IVPB SCH (09:30)
[2024-03-27] MEDS: HYDROmorphone HCL CARPU-JECT 2 MG/1 ML DISP.SYRIN IVPUSH PRN (09:42)
[2024-03-27 09:58] LABS: ANISOCYTOSIS 0; MACROCYTOSIS 0
[2024-03-27] MEDS: FENTANYL NS IVPB 500 MCG/100 ML BAG IVPB SCH (10:43)
[2024-03-27] MEDS ORDERED: VASopressin 20 UNITS/ML VIAL IV ONE (12:52)
[2024-03-27] MEDS: morphine SULFATE 4 MG/ML VIAL IVPUSH ONE (13:46)
[2024-03-28] MEDS ORDERED: PHENYLEPHRINE HCL 10 MG/1 ML SINGLE DOSE VIAL ONE ×2 (03:37→18:34)
[2024-03-28] MEDS ORDERED: VASopressin 20 UNITS/ML VIAL IV ONE (04:12)
[2024-03-28 07:48] LABS: HEMATOCRIT 25.6 % (32.4-45.2); HEMOGLOBIN 7.7 GM/dL (10.7-15.3); MCH 28.9 pg (25.7-33.7); MEAN CELL VOLUME 96.3 fl (80-96); MEAN PLT VOLUME 10.1 fl (7.5-11.1); PLATELET COUNT 46 10^3/uL (134-434); RBC 2.65 M/mm3 (3.60-5.2); RDW 17.9 % (11.6-15.6); WHITE BLOOD COUNT 19.4 K/mm3 (4.0-10.0)
[2024-03-28 07:51] LABS: CHLORIDE 114 mmol/L (98-107); POTASSIUM 3.3 mmol/L (3.5-5.1); SODIUM 144 mmol/L (136-145)
[2024-03-28 07:55] LABS: ALBUMIN 1.6 g/dl (3.4-5.0); ANION GAP 9 mmol/L (4-13); BLOOD UREA NITROGEN 27.9 mg/dL (7-18); CALCIUM 7.9 mg/dL (8.5-10.1); CO2 21 mmol/L (21-32); GLUCOSE,RANDOM 109 mg/dL (74-106); MAGNESIUM 1.6 mg/dL (1.8-2.4)
[2024-03-28 07:58] LABS: CREATININE 2.7 mg/dL (0.55-1.3); PHOSPHOROUS 4.3 mg/dL (2.5-4.9); SGOT/AST 9 U/L (15-37)
[2024-03-28 07:59] LABS: BILIRUBIN,TOTAL 0.9 mg/dL (0.2-1)
[2024-03-28 08:00] LABS: ALK PHOS 88 U/L (45-117); SGPT/ALT < 6 U/L (13-61); TOT PROT 4.4 g/dl (6.4-8.2)
[2024-03-28] MEDS: MAGNESIUM SULF 50% (8.12 MEQ/2 ML-1 GM VIAL) IVPB ONE (09:40)
[2024-03-28] MEDS: KCL 20 MEQ PREMIX BAG 20 MEQ/100 ML INFUS.BAG IVPB ONE (10:47)
[2024-03-28] MEDS: DIGOXIN 0.5 MG/2 ML AMPUL IVPUSH ONE (11:27)
[2024-03-28] MEDS: DIGOXIN 0.5 MG/2 ML AMPUL IVPUSH SCH (11:32)
[2024-03-28] MEDS: AMINO ACIDS 4.25%/D5W 1,000 ML IV SCH ×2 (14:56→16:03)
[2024-03-28] MEDS ORDERED: SODIUM CHLORIDE 250 ML IV PRN (17:27)
[2024-03-28] MEDS: DEXMEDETOMIDINE PREMIX 400 MCG/100 ML BAG IVPB SCH (20:32)
[2024-03-29 07:48] LABS: HEMATOCRIT 24.2 % (32.4-45.2); HEMOGLOBIN 7.3 GM/dL (10.7-15.3); MCH 29.2 pg (25.7-33.7); MCHC 30.1 g/dl (32.0-36.0); MEAN PLT VOLUME 10.7 fl (7.5-11.1); RBC 2.49 M/mm3 (3.60-5.2); RDW 18.3 % (11.6-15.6); WHITE BLOOD COUNT 16.3 K/mm3 (4.0-10.0)
[2024-03-29 07:54] LABS: PLATELET COUNT 35 10^3/uL (134-434)
[2024-03-29 08:12] LABS: CHLORIDE 114 mmol/L (98-107); POTASSIUM 3.3 mmol/L (3.5-5.1); SODIUM 143 mmol/L (136-145)
[2024-03-29 08:20] LABS: SGOT/AST 7 U/L (15-37)
[2024-03-29 08:21] LABS: ALBUMIN 1.5 g/dl (3.4-5.0); ANION GAP 9 mmol/L (4-13); BILIRUBIN,TOTAL 0.8 mg/dL (0.2-1); BLOOD UREA NITROGEN 32.7 mg/dL (7-18); CALCIUM 7.8 mg/dL (8.5-10.1); CO2 20 mmol/L (21-32); GLUCOSE,RANDOM 130 mg/dL (74-106); MAGNESIUM 1.9 mg/dL (1.8-2.4); SGPT/ALT < 6 U/L (13-61); TOT PROT 4.3 g/dl (6.4-8.2)
[2024-03-29 08:23] LABS: ALK PHOS 82 U/L (45-117)
[2024-03-29 08:24] LABS: PHOSPHOROUS 4.3 mg/dL (2.5-4.9)
[2024-03-29 14:27] LABS: INR 1.07 (0.83-1.09); PROTHROMBIN TIME (PATIENT) 12.1 SEC (9.7-13.0)
[2024-03-29 14:29] LABS: ACTIVATED PTT 31.5 SECONDS (25.2-36.5)
[2024-03-29] MEDS: KCL 20 MEQ PREMIX BAG 20 MEQ/100 ML INFUS.BAG IVPB ONE (15:27)
[2024-03-29] MEDS ORDERED: EPOETIN ALFA-EPBX 10,000 UNIT/ML VIAL SQ ONE (17:27)
[2024-03-29] MEDS ORDERED: PHENYLEPHRINE HCL 10 MG/1 ML SINGLE DOSE VIAL ONE (18:36)
[2024-03-30 06:52] LABS: POTASSIUM 3.5 mmol/L (3.5-5.1)
[2024-03-30 06:53] LABS: HEMATOCRIT 24.3 % (32.4-45.2); HEMOGLOBIN 7.5 GM/dL (10.7-15.3); MCH 29.7 pg (25.7-33.7); MCHC 30.8 g/dl (32.0-36.0); MEAN CELL VOLUME 96.6 fl (80-96); MEAN PLT VOLUME 10.2 fl (7.5-11.1); RBC 2.52 M/mm3 (3.60-5.2); RDW 18.3 % (11.6-15.6)
[2024-03-30 06:55] LABS: ALBUMIN 1.5 g/dl (3.4-5.0); CALCIUM 7.8 mg/dL (8.5-10.1)
[2024-03-30 06:56] LABS: BLOOD UREA NITROGEN 41.3 mg/dL (7-18); MAGNESIUM 1.8 mg/dL (1.8-2.4)
[2024-03-30 06:59] LABS: CREATININE 3.2 mg/dL (0.55-1.3); PHOSPHOROUS 4.2 mg/dL (2.5-4.9); PLATELET COUNT 26 10^3/uL (134-434)
[2024-03-30 07:00] LABS: TOT PROT 4.4 g/dl (6.4-8.2)
[2024-03-30] MEDS: DIGOXIN 0.5 MG/2 ML AMPUL IVPUSH SCH (11:08)
[2024-03-30] MEDS: MIDAZOLAM IN 0.9 % SOD.CHLORID 100 MG/100 ML PLAST..BAG IVPB SCH (11:12)
[2024-03-30] MEDS ORDERED: NOREPINEPHRINE BITARTRATE 4,000 MCG in DEXTROSE 5%-WATER - 496 ML IV SCH (13:30)
[2024-03-30] MEDS: MEROPENEM-0.9% SODIUM CHLORIDE 1 GM/50 ML BAG IVPB SCH (17:10)
[2024-03-30] MEDS: VANCOMYCIN 1 GM PREMIX (F) 1 GM/200 ML BAG IVPB ONE (17:11)
[2024-03-30] MEDS: NOREPINEPHRINE BITARTRATE/D5W 8 MG/250 ML BAG IVPB SCH (18:27)
[2024-03-31] MEDS: DEXMEDETOMIDINE IN 0.9 % NACL 200 MCG/50 ML EACH IVPB SCH (03:58)
[2024-03-31 06:56] LABS: HEMATOCRIT 26.1 % (32.4-45.2); HEMOGLOBIN 7.9 GM/dL (10.7-15.3); MCH 29.8 pg (25.7-33.7); MCHC 30.2 g/dl (32.0-36.0); MEAN CELL VOLUME 98.5 fl (80-96); MEAN PLT VOLUME 9.6 fl (7.5-11.1); RBC 2.65 M/mm3 (3.60-5.2); RDW 19.5 % (11.6-15.6); WHITE BLOOD COUNT 10.3 K/mm3 (4.0-10.0)
[2024-03-31 07:07] LABS: PLATELET COUNT 17 10^3/uL (134-434)
[2024-03-31 07:15] LABS: POTASSIUM 3.7 mmol/L (3.5-5.1)
[2024-03-31 07:22] LABS: ALBUMIN 1.3 g/dl (3.4-5.0); BLOOD UREA NITROGEN 45.3 mg/dL (7-18); CALCIUM 7.8 mg/dL (8.5-10.1)
[2024-03-31 07:23] LABS: MAGNESIUM 1.6 mg/dL (1.8-2.4)
[2024-03-31 07:26] LABS: BILIRUBIN,TOTAL 1.1 mg/dL (0.2-1); CREATININE 3.3 mg/dL (0.55-1.3); PHOSPHOROUS 5.1 mg/dL (2.5-4.9)
[2024-03-31] MEDS: MAGNESIUM 2GM/50ML STERILE WATER IVPB IVPB ONE (10:36)
[2024-03-31] MEDS: DEXTROSE 50%-WATER 25 GM/50 ML DISP.SYRIN IVPUSH ONE (12:10)
[2024-03-31 18:37] VITALS: BP 139/67; RESP 18
[2024-03-31 22:45] LABS: ARTERIAL BLD GAS O2 SATURATION 73.8 % (95-98); ARTERIAL BLOOD GAS BASE EXCESS -29.2 mmol/L (-2-2); ARTERIAL BLOOD GAS PO2 79.5 mmHg (80-100)
[2024-03-31] MEDS ORDERED: ATROPINE SULFATE 1 MG/10 ML DISP.SYRIN ONE (22:48)
[2024-03-31 22:54] LABS: ARTERIAL BLOOD GAS pH < 6.717 (7.350-7.450)
[2024-03-31] MEDS ORDERED: SODIUM BICARBONATE 8.4% 50 MEQ/50 ML DISP.SYRIN ONE (23:00)
[2024-03-31] MEDS: ATROPINE SULFATE 1 MG/10 ML DISP.SYRIN IVPUSH ONE (23:10)
[2024-03-31] MEDS: SODIUM BICARBONATE 8.4% 50 MEQ/50 ML DISP.SYRIN IVPUSH ONE ×4 (23:10)
[2024-03-31] MEDS: DOPAMINE 400 MG/D5W - 400,000 MCG/250 ML INFUS.BAG IVPB SCH (23:17)
[2024-03-31 23:47] LABS: BASO % 0.7 % (0-2.0); EOS % 0.2 % (0-4.5); HEMATOCRIT 17.7 % (32.4-45.2); LYMPH % 22.7 % (8-40); MCH 31.1 pg (25.7-33.7); MCHC 30.4 g/dl (32.0-36.0); MEAN CELL VOLUME 102.3 fl (80-96); MEAN PLT VOLUME 8.8 fl (7.5-11.1); MONO % 2.8 % (3.8-10.2); NEUT % 73.6 % (42.8-82.8); RBC 1.73 M/mm3 (3.60-5.2); RDW 19.1 % (11.6-15.6)
[2024-03-31 23:51] LABS: HEMOGLOBIN 5.4 GM/dL (10.7-15.3); PLATELET COUNT 7 10^3/uL (134-434)
[2024-03-31 23:52] LABS: ARTERIAL BLD GAS O2 SATURATION 85.2 % (95-98); ARTERIAL BLOOD GAS BASE EXCESS -18.4 mmol/L (-2-2); ARTERIAL BLOOD GAS PO2 80.6 mmHg (80-100)
[2024-03-31] MEDS: FENTANYL CITRATE/PF 50 MCG/ML VIAL IVPUSH ONE (23:53)
[2024-03-31 23:54] LABS: ARTERIAL BLOOD GAS pH 6.912 (7.350-7.450)
[2024-04-01 00:01] LABS: CHLORIDE 115 mmol/L (98-107); SODIUM 146 mmol/L (136-145)
[2024-04-01 00:02] LABS: CALCIUM 7.3 mg/dL (8.5-10.1)
[2024-04-01 00:03] LABS: BLOOD UREA NITROGEN 46.8 mg/dL (7-18); CO2 15 mmol/L (21-32)
[2024-04-01 00:06] LABS: CREATININE 3.7 mg/dL (0.55-1.3); SGPT/ALT 393 U/L (13-61)
[2024-04-01 00:08] LABS: BILIRUBIN,TOTAL 1.1 mg/dL (0.2-1); TOT PROT 2.6 g/dl (6.4-8.2)
[2024-04-01 00:09] LABS: ALK PHOS 75 U/L (45-117)
[2024-04-01 00:10] LABS: ALBUMIN 0.8 g/dl (3.4-5.0); ANION GAP 16 mmol/L (4-13); GLUCOSE,RANDOM 7 mg/dL (74-106); POTASSIUM 6.5 mmol/L (3.5-5.1)
[2024-04-01] MEDS: SODIUM BICARBONATE 8.4% 50 MEQ/50 ML DISP.SYRIN IVPUSH ONE ×5 (00:19→03:44)
[2024-04-01] MEDS: DEXTROSE 50%-WATER 25 GM/50 ML DISP.SYRIN IVPUSH ONE ×2 (00:20→01:14)
[2024-04-01 00:25] LABS: SGOT/AST 3776 U/L (15-37)
[2024-04-01] MEDS: CALCIUM GLUCONATE 10% - 1,000 MG/10 ML VIAL IVPB ONE (00:27)
[2024-04-01] MEDS ORDERED: PANTOPRAZOLE SODIUM 80 MG in SODIUM CHLORIDE 100 ML IVPB SCH (00:30)
[2024-04-01] MEDS: DEXTROSE 50%-WATER - 25 GM/50 ML VIAL IVPUSH ONE (01:15)
[2024-04-01] MEDS: INSULIN REGULAR HUMAN 100 UNITS/ML *VIAL IVPUSH ONE (01:19)
[2024-04-01 02:09] VITALS: PULSE 82; TEMP 95.6
[2024-04-01] MEDS ORDERED: SODIUM BICARBONATE 8.4% 50 MEQ/50 ML DISP.SYRIN ONE (02:45)
[2024-04-01] MEDS: SODIUM BICARBONATE 8.4% - 150 MEQ in DEXTROSE 5%-WATER - 950 ML IVPB SCH (02:56)
[2024-04-01] MEDS: ATROPINE SULFATE 1 MG/10 ML DISP.SYRIN IVPUSH ONE (03:44)
== END 2024-04-01 06:44 | disposition expired | DRG 207 ==
LOC: JER 14:58 → JERBED 18:10 → JICU 20:11
PROVIDERS: ADMIT Internal Medicine Pulmonary Disease; ATTEND Internal Medicine Pulmonary Disease
PROC: 06HM33Z Insertion of Infusion Device into Right Femoral Vein, Percutaneous Approach (ICD-10-PCS; principal; 2024-03-18)
PROC: B54BZZA Ultrasonography of Right Lower Extremity Veins, Guidance (ICD-10-PCS; 2024-03-18)
PROC: 5A1D70Z Performance of Urinary Filtration, Intermittent, Less than 6 Hours Per Day (ICD-10-PCS; 2024-03-18)
PROC: 5A1955Z Respiratory Ventilation, Greater than 96 Consecutive Hours (ICD-10-PCS; 2024-03-20)
PROC: 0W9930Z Drainage of Right Pleural Cavity with Drainage Device, Percutaneous Approach (ICD-10-PCS; 2024-03-20)
PROC: 0BH17EZ Insertion of Endotracheal Airway into Trachea, Via Natural or Artificial Opening (ICD-10-PCS; 2024-03-20)
PROC: 05HM33Z Insertion of Infusion Device into Right Internal Jugular Vein, Percutaneous Approach (ICD-10-PCS; 2024-03-21)
PROC: B543ZZA Ultrasonography of Right Jugular Veins, Guidance (ICD-10-PCS; 2024-03-21)
PROC: 5A1D70Z Performance of Urinary Filtration, Intermittent, Less than 6 Hours Per Day (ICD-10-PCS; 2024-03-21)
PROC: 5A1D70Z Performance of Urinary Filtration, Intermittent, Less than 6 Hours Per Day (ICD-10-PCS; 2024-03-24)
DX: C78.00 Secondary malignant neoplasm of unspecified lung (principal); J96.01 Acute respiratory failure with hypoxia; N18.6 End stage renal disease; I48.92 Unspecified atrial flutter; C79.51 Secondary malignant neoplasm of bone; J91.0 Malignant pleural effusion; N17.9 Acute kidney failure, unspecified; J84.9 Interstitial pulmonary disease, unspecified; I12.0 Hypertensive chronic kidney disease with stage 5 chronic kidney disease or end stage renal disease; E83.42 Hypomagnesemia; B97.4 Respiratory syncytial virus as the cause of diseases classified elsewhere; I95.9 Hypotension, unspecified; J84.10 Pulmonary fibrosis, unspecified; I48.91 Unspecified atrial fibrillation; C50.919 Malignant neoplasm of unspecified site of unspecified female breast; J44.9 Chronic obstructive pulmonary disease, unspecified; Z99.2 Dependence on renal dialysis; E83.39 Other disorders of phosphorus metabolism; D72.829 Elevated white blood cell count, unspecified
CPT/HCPCS: 0241U-QW; 31500; 36415; 36430; 36600; 71045-TC-FY; 71250-TC; 80053; 80061; 80162; 82550; 82728; 82803; 82962; 83036; 83605; 83735; 84100; 84439; 84443; 84484; 85025; 85027; 85384; 85610; 85730; 86850; 86900; 86901; 86922; 87040; 87481; 93005; 93010; 94002; 94640; 99291; G0480; J0282; J1644; J2997; J3490; P9047; P9058; Q5106